=== PATIENT | male | born 1930 | race Caucasian/White ===

== ENCOUNTER 2020-07-11 08:24 | Observation (INO) ==
--- NOTE | 2020-07-11 09:21 | Emergency Department Note ---
Impression & Plan Lower gastrointestinal hemorrhage, Elevated troponin I level ED Provider Note NAME: BLAKE MIR AGE: 89 SEX: M : 1930 ARRIVES VIA: Walk-In INFORMANT: Patient, ED PROVIDER(S): Issa Shah DO CHIEF COMPLAINT: Rectal bleeding HPI: The patient is an 89-year-old male who presented to the emergency department for an evaluation of painless rectal bleeding. The patient states that he woke this morning with a large amount of rectal bleeding. This occurred without bowel movement. He notices no rectal pain or swelling. He does not have a history of lower GI bleeding or hemorrhoids. He does have a history of upper GI bleeding in the past requiring gastrectomy. He denies having any nausea or vomiting. He does complain of abdominal distention but no specific abdominal pain. The patient has not been seen by his primary care physician for these complaints. He notices no fevers. He has had a colonoscopy within the last 10 years but does not remember being told that he has a history of diverticular disease. The patient's symptoms are mildly improved at this time. ROS: See above HPI for pertinent positives & negatives. A total of 10 systems reviewed and were otherwise negative. PAST MEDICAL HISTORY: See Below PAST SURGICAL HISTORY: See Below FAMILY HISTORY: See Below SOCIAL HISTORY: See Below HOME MEDICATIONS: See Below ALLERGIES: See Below VITALS: See Below PHYSICAL EXAMINATION: GENERAL: Patient is awake alert in no acute distress patient is resting comfortably and showing no signs of anxiety EYES: The conjunctivae are clear. The pupils are round and reactive. EARS, NOSE, MOUTH AND THROAT: The nose is without any evidence of any deformity. NECK: The neck is nontender and supple. RESPIRATORY: Normal respiratory effort is noted there is no evidence of wheezing rhonchi or rales CARDIOVASCULAR: Regular rate and rhythm noted there no murmurs rubs or gallops normal S1 normal S2. GASTROINTESTINAL: The abdomen is moderately distended and diffusely tender. There is no specific guarding or rigidity. Rectal exam revealed gross blood per rectum. MUSCULOSKELETAL/EXTREMITIES: There is no evidence of gross deformity full range of motion is noted in the hips and shoulders. SKIN: Venous stasis changes were noted to both lower extremities. There is pedal edema bilaterally. NEUROLOGIC: Patient is awake alert and oriented x3. MEDICAL DECISION MAKING: The patient is an 89-year-old male who presented to the emergency department for an evaluation of lower GI bleeding. The patient was found to have signs of lower GI bleeding on physical exam. He was anemic however this appears baseline for him. He did have an elevated troponin which could be related to demand ischemia. The patient has no complaints at this time. His abdominal exam was not consistent with an acute surgical abdomen. We discussed patient's laborato ry and radiographic studies with him. We discussed his case with the on-call [facility] hospitalist. They will evaluate the patient in the emergency department for further management and disposition. Triage Nursing notes reviewed. Prior medical records reviewed Vital Signs: reviewed and remarkable for elevated blood pressure. Differential diagnosis: Diverticulosis, AVM, coagulopathy, colitis, inflammatory bowel disease, malignancy, Nichole-Lorenz tear, esophagitis, peptic ulcer disease, variceal blee d, gastritis, epistaxis, fissure, hemorrhoids, as well as other pathologies. ER treatment provided: See below Diagnostics interpreted by me: ECG: EKG was obtained in the emergency department. My interpretation is normal sinus rhythm at 68 bpm. There is no ectopy. There is no acute ST segment abnormalities. This was compared to a tracing from October 282015. No sp ecific changes were noted. Cardiac Monitoring: An order was placed for continuous cardiac monitoring. The monitor shows a rate of 75 bpm with sinus rhythm. Laboratory studies: As stated above and show below. Imaging studies: See below Consultation(s): I discussed this case with Mo[facility] will [facility] the patient in the emergency department for further management and disposition. Past Med/Surg History Medical History Abdominal aortic aneurysm CAD (coronary artery disease) CKD (chronic kidney disease), stage III Diabetes Hyperlipemia Hyperlipidemia Surgical History History of biopsy History of hernia repair History of partial gastrectomy Stented coronary artery Social History Smoking Status: Former smoker Feels Safe at Home: Yes Allergies Allergies Allergy/AdvReac Type Severity Reaction Status Date / Time No Known Allergies Allergy Unknown Unverified 07/11/20 09:15 Home Meds Home Medications Medication Instructions Recorded Confirmed amlodipine [Norvasc] 2.5 mg PO QAM 08/01/18 07/11/20 calcitriol [Rocaltrol] 0.25 mg PO MOWEFR@0800 08/01/18 07/11/20 fluoxetine [Prozac] 20 mg PO HS 08/01/18 07/11/20 furosemide [Lasix] 10 mg PO QAM 08/01/18 07/11/20 glimepiride [Amaryl] 2 mg PO QAM 08/01/18 07/11/20 lorazepam [Ativan] 0.5 mg PO TID PRN 08/01/18 07/11/20 metoprolol succinate [Toprol XL] 12.5 mg PO QAM 08/01/18 07/11/20 rosuvastatin [Crestor] 20 mg PO QAM 08/01/18 07/11/20 aspirin 81 mg PO 07/11/20 07/11/20 hydrochlorothiazide 12.5 mg PO QAM 07/11/20 07/11/20 Results & Data (ED) Vital Signs Vital Signs - 24 hr 07/11/20 08:26 07/11/20 08:40 07/11/20 08:59 Temperature 36.7 C Temperature Source Oral Pulse Rate 78 Pulse Rate from SpO2 Sensor Respiratory Rate 20 Respiratory Effort / Characteristics Non-Labored Respiratory Depth Normal Blood Pressure 168/81 H Blood Pressure Mean 110 Pulse Oximetry 93 95 95 Oxygen Delivery Method Room Air Room Air Room Air Sepsis Recent Fever Within 48 Hours No Sepsis New/Unexplained Change in Mental Status No Sepsis Action Taken by Nursing No Action Required 07/11/20 09:05 07/11/20 09:30 07/11/20 10:05 Temperature Temperature Source Pulse Rate 69 68 67 Pulse Rate from SpO2 Sensor 68 67 67 Respiratory Rate 21 22 20 Respiratory Effort / Characteristics Respiratory Depth Blood Pressure 154/76 H 139/78 142/74 H Blood Pressure Mean 98 101 112 Pulse Oximetry 94 94 95 Oxygen Delivery Method Room Air Room Air Room Air Sepsis Recent Fever Within 48 Hours Sepsis New/Unexplained Change in Mental Status Sepsis Action Taken by Snf Medications Current Medication List: was personally reviewed by me Laboratory Data Attestation: I reviewed the patient's lab results. Result diagrams: 07/11/20 08:41 07/11/20 08:41 Lab Results 07/11/20 07/11/20 07/11/20 Range/Units 08:41 08:41 08:41 WBC 12.49 H (4.8-10.8) K/uL RBC 3.84 L (4.7-6.1) M/uL Hgb 11.9 L (14.0-18.0) g/dL Hct 36.7 L (42-52) % MCV 95.6 (80-100) fL MCH 31.0 (25-34) pg MCHC 32.4 (32-36) g/dL RDW Std Deviation 49.9 H (36.4-46.3) fL RDW Coeff of Vikas 14.2 (11.5-14.5) % Plt Count 240 (130-400) K/uL MPV 10.0 (7.4-10.4) fL Immature Gran % (Auto) 0.3 % Neut % (Auto) 65.3 % Lymph % (Auto) 21.8 % Armstrong % (Auto) 7.0 % Eos % (Auto) 5.2 % Baso % (Auto) 0.4 % Neut # (Auto) 8.15 H (1.4-6.5) K/uL Lymph # (Auto) 2.72 (1.2-3.4) K/uL Armstrong # (Auto) 0.88 H (0.11-0.59) K/uL Eos # (Auto) 0.65 H (0-0.5) K/uL Baso # (Auto) 0.05 (0-0.2) K/uL Immature Gran # (Auto) 0.04 H (0.00-0.02) K/uL PT 10.9 (9.0-12.0) Seconds INR 1.0 (0.9-1.1) APTT 25.1 (21.0-31.0) Seconds PTT Ratio 0.9 Sodium 140 (136-145) mmol/L Potassium 4.4 (3.5-5.1) mmol/L Chloride 108 H (98-107) mmol/L Carbon Dioxide 25 (21-32) mmol/L Anion Gap 7.0 (3-11) BUN 37 H (7-18) mg/dl Creatinine 2.14 H (0.6-1.4) mg/dl Est Cr Clr Drug Dosing 20.4 ml/min Est GFR ( Amer) 30.7 Est GFR (Non-Af Amer) 26.5 BUN/Creatinine Ratio 17.1 (10-20) Glucose 152 H (70-99) mg/dl Calcium 8.9 (8.5-10.1) mg/dl Magnesium 2.0 (1.8-2.4) mg/dl Total Bilirubin 0.2 (0.2-1) mg/dl AST 16 (15-37) U/L ALT 19 (12-78) U/L Alkaline Phosphatase 58 (45-117) U/L Troponin I 0.099 H* (0-0.045) ng/ml Total Protein 8.5 H (6.4-8.2) gm/dl Albumin 3.4 (3.4-5.0) gm/dl Globulin 5.1 H (2.5-4.0) gm/dl Albumin/Globulin Ratio 0.7 L (0.9-2) TSH 2.440 (0.300-4.500) uIu/ml Imaging Data Radiologist's Impression: KUB HISTORY: GI bleed. COMPARISON: None. FINDINGS: The bowel gas pattern is unremarkable. There are no dilated loops of small bowel to suggest an obstruction. No renal calculi. No ureteral calculi. Calcifications in the deep pelvis likely represent phleboliths. Vascular calcifications are noted. No pneumoperitoneum or pneumatosis. IMPRESSION: No evidence for bowel obstruction. ACT 112: Negative or not required by law. Electronically signed by: Brian Shipley M.D. 07/11/2020 10:13 AM Dictated: 07/11/20 1012 Transcribed: 07/11/20 1012 SINGLE VIEW CHEST CLINICAL HISTORY: Generalized weakness. FINDINGS: An AP, portable, upright chest radiograph is compared to study dated 08/01/2018. The examination is degraded by portable technique and patient rotation. The heart is enlarged noting atherosclerotic calcification of the thoracic aorta. The pulmonary vasculature is noncongested. Chronic interstitial thickening and apical scarring is similar to previous. There is bibasilar scarring/atelectasis. No airspace consolidation or large pleural effusion is identified. No pneumothorax is seen. The skeletal structures are osteopenic. The bony thorax is grossly intact. Calcific tendinopathy is noted in the left shoulder. IMPRESSION: Cardiomegaly with no acute cardiopulmonary abnormality. ACT 112: Negative or not required by law. Electronically signed by: Gopal Adam M.D. 07/11/2020 10:09 AM Dictated: 07/11/20 1008 Transcribed: 07/11/20 1008 Blood Pressure Blood Pressure Findings: Elevated blood pressure Blood Pressure Disposition: further management by hospitalist Discharge Plan Visit Data Chief Complaint: Rectal Bleed Stated Complaint: RECTAL BLEEDING ED Provider: Issa Shah ED Midlevel Provider: Edmund Henderson Discharge Problem: Lower gastrointestinal hemorrhage, Elevated troponin I level Patient Disposition: Being Evaluated by Hospitalist Condition: Good Forms Stand Alone [facility] [employer] Prescriptions Prescriptions: No Action hydrochlorothiazide 12.5 mg capsule 12.5 mg PO QAM RF: 0 aspirin 81 mg Tablet,Delayed Release (Dr/Ec) 81 mg PO HS RF: 0 amlodipine [Norvasc] 2.5 mg tablet 2.5 mg PO QAM RF: 0 glimepiride [Amaryl] 2 mg tablet 2 mg PO QAM RF: 0 lorazepam [Ativan] 0.5 mg tablet 0.5 mg PO TID PRN (Reason: Anxiety) RF: 0 furosemide [Lasix] 20 mg tablet 10 mg PO QAM RF: 0 metoprolol succinate [Toprol XL] 25 mg tablet extended release 24 hr 12.5 mg PO QAM RF: 0 fluoxetine [Prozac] 20 mg capsule 20 mg PO HS RF: 0 calcitriol [Rocaltrol] 0.25 mcg capsule 0.25 mg PO MOWEFR@0800 RF: 0 rosuvastatin [Crestor] 20 mg tablet 20 mg PO QAM RF: 0 Referrals Referrals: Ganesh Livingston DO [Primary Care Provider] -
--- NOTE | 2020-07-11 09:34 | Emergency Department Note ---
ED Visit Note I saw this patient today and discussed my findings w/ Dr. Shah who has examined the patient independently. Please see his documentation for assessment and plan. . Resident Activity Tracking Resident Involvement: Resident Care Provided Care Provided: Adult ED
[2020-07-11 09:41] LABS: Basophils # (auto) 0.05 K/uL (0-0.2); Basophils % (auto) 0.4 %; Eosinophils # (auto) 0.65 K/uL (0-0.5); Eosinophils % (auto) 5.2 %; Hematocrit (blood only) 36.7 % (42-52); Hemoglobin 11.9 g/dL (14.0-18.0); Immature Granulocytes # (auto) 0.04 K/uL (0.00-0.02); Immature Granulocytes % (auto) 0.3 %; Lymphocytes # (auto) 2.72 K/uL (1.2-3.4); Lymphocytes % (auto) 21.8 %; Mean Corpuscular Hgb Conc 32.4 g/dL (32-36); Mean Corpuscular Volume 95.6 fL (80-100); Monocytes # (auto) 0.88 K/uL (0.11-0.59); Neutrophils # (auto) 8.15 K/uL (1.4-6.5); Neutrophils % (auto) 65.3 %; Platelet Count 240 K/uL (130-400); RDW Coefficient of Variation 14.2 % (11.5-14.5); RDW Standard Deviation 49.9 fL (36.4-46.3); Red Blood Count 3.84 M/uL (4.7-6.1); White Blood Count 12.49 K/uL (4.8-10.8)
[2020-07-11 09:52] LABS: Partial Thromboplastin Ratio 0.9; Partial Thromboplastin Time 25.1 Seconds (21.0-31.0); Prothrombin Time 10.9 Seconds (9.0-12.0)
[2020-07-11 09:54] LABS: Potassium 4.4 mmol/L (3.5-5.1)
[2020-07-11 09:55] LABS: Albumin Level 3.4 gm/dl (3.4-5.0); BUN Creatinine Ratio 17.1 (10-20); Calcium 8.9 mg/dl (8.5-10.1); Creatinine Clr Calc Pharmacy 20.4 ml/min; Est GFR (African American) 30.7; Est GFR (Non-African American) 26.5
--- NOTE | 2020-07-11 10:10 | XRay Report ---
SINGLE VIEW CHEST CLINICAL HISTORY: Generalized weakness. FINDINGS: An AP, portable, upright chest radiograph is compared to study dated 08/01/2018. The examina tion is degraded by portable technique and patient rotation. The heart is enlarged noting atheroscl erotic calcification of the thoracic aorta. The pulmonary vasculature is noncongested. Chronic inters titial thickening and apical scarring is similar to previous. There is bibasilar scarring/atelectasis . No airspace consolidation or large pleural effusion is identified. No pneumothorax is seen. The ske letal structures are osteopenic. The bony thorax is grossly intact. Calcific tendinopathy is noted in the left shoulder. IMPRESSION: Cardiomegaly with no acute cardiopulmonary abnormality. ACT 112: Negative or not required by law. Electronically signed by: Gopal Adam M.D. 07/11/2020 10:09 AM
--- NOTE | 2020-07-11 10:15 | XRay Report ---
KUB HISTORY: GI bleed. COMPARISON: None. FINDINGS: The bowel gas pattern is unremarkable. There are no dilated loops of small bowel to suggest an obstruction. No renal calculi. No ureteral calculi. Calcifications in the deep pelvis likely rep resent phleboliths. Vascular calcifications are noted. No pneumoperitoneum or pneumatosis. IMPRESSION: No evidence for bowel obstruction. ACT 112: Negative or not required by law. Electronically signed by: Brian Shipley M.D. 07/11/2020 10:13 AM
[2020-07-11 10:24] LABS: Albumin Globulin Ratio 0.7 (0.9-2); Bilirubin,Total 0.2 mg/dl (0.2-1); Globulin 5.1 gm/dl (2.5-4.0); Thyroid Stimulating Hormone 2.44 uIu/ml (0.300-4.500); Total Protein 8.5 gm/dl (6.4-8.2); Troponin I 0.099 ng/ml (0-0.045)
--- NOTE | 2020-07-11 11:57 | History & Physical Report ---
Date of Service July 11, 2020 Assessment & Plan (1) Rectal bleeding: Pt is 89 y/o M with PMH DM II, HTN, dyslipidemia, CAD s/p PTCA in 1996, CKD III, gastric ulcer s/p partial gastrectomy, AAA, anxiety, depression, PAD, GERD presented to ER with complaint of rectal bleeding started this morning. Denies fever/chills, N/V/D/C, abdominal pain, CP, SOB, dizziness, syncope History colonoscopy in 2006: Polyps, diverticulosis In ER patient afebrile, vitals stable with pulse 78, BP: 168/81 H/H: 11.9/36. (Baseline Hgb: 11.6 on 05/02/2020), PLT:240, normal coags KUB:No evidence for bowel obstruction. DDX: diverticular bleed, hemorrhoid bleed, mass CT ABD/Pelvis pending Type and cross PRBC and hold NPO for now Gentle IVF Stool cultures, C-diff Monitor H&H Q6H GI consult CBC, BMP in am (2) Elevated troponin: Troponin: 0.09. EKG sinus rhythm without acute ST changes. No CP, SOB -Monitor Vitals -Repeat EKG in am -Will trend troponin -Echo -Hold aspirin currently with rectal bleeding -Hold statin for now while npo -Continue metoprolol succinate -If increasing troponin, consider cardiology consult (3) Diabetes mellitus, type II: A1c: 7.4 on 05/18/2020 -Hold oral home meds -Monitor BSG -NovoLog sliding scale per protocol (4) CAD (coronary artery disease): S/P stent in 1996 History echo 2017: EF: 55-59%, grade 1 diastolic dysfunction, mild aortic valve sclerosis -Holding aspirin, statin for now as above -Continue metoprolol (5) HTN (hypertension): BP's stable. Most recent BP 152/99 -Continue metoprolol succinate -Hold amlodipine for now and monitor BP (6) CKD (chronic kidney disease), stage III: Cr: 2.14. Baseline Cr: 1.9-2.0. -Monitor renal functions, avoid nephrotoxic agents when possible (7) GERD (gastroesophageal reflux disease): (8) History of partial gastrectomy: H/O gastric ulcer s/p partial gastrectomy in s -Hold oral PPI, H2 savanna for now and will convert PPI to IV while npo (9) Anxiety: -Hold home meds at this time while npo DVT Prophylaxis -SCDs secondary to rectal bleeding DNR/DNI as per discussion with pt Follows with Dr Ganesh Livingston for routine care Pt was seen and care coordinated with Dr Scott. See addendum History of Present Illness Chief Complaint: Rectal bleeding Primary Care Provider: Ganesh Livingston, Pt is 89 y/o M with PMH DM II, HTN, dyslipidemia, CAD s/p PTCA in 1996, CKD III, gastric ulcer s/p partial gastrectomy, AAA, anxiety, depression, PAD, GERD presented to ER with complaint of rectal bleeding today. Patient states woke up this morning and noted red blood in his underwear and on his bedsheet. Patient states this morning had 2 episodes of sensation that he had to have a BM however when went to bathroom past red blood. He is unsure if he had any stool mixed in with the blood. Denies any abdominal pain, nausea, vomiting. Patient denies any lightheadedness, syncope, chest pain, shortness of breath. Denies h/o rectal bleeding or hemorrhoids in past. Denies recent diarrhea or constipation. Denies fever/chills, diaphoresis, OLSEN, dizziness, syncope, vision changes, neck pain, orthopnea, palpitations, cough, sore throat, rhinorrhea, abdominal pain, paresthesias, weakness, extremity weakness, extremity edema, rashes, urinary symptoms. History colonoscopy in 2006: Polyps, diverticulosis Allergies Allergy/AdvReac Type Severity Reaction Status Date / Time No Known Allergies Allergy Unknown Unverified 07/11/20 09:15 Home Medications Home Medications Medication Instructions Recorded Confirmed Type calcitriol [Rocaltrol] 0.25 mg PO MOWEFR@0800 08/01/18 07/11/20 History metoprolol succinate [Toprol XL] 12.5 mg PO QAM 08/01/18 07/11/20 History amlodipine 5 mg PO DAILY 07/11/20 07/11/20 History aspirin 81 mg PO HS 07/11/20 07/11/20 History buspirone 10 mg PO BID 07/11/20 07/11/20 History escitalopram oxalate 10 mg PO DAILY 07/11/20 07/11/20 History furosemide 40 mg PO DAILY 07/11/20 07/11/20 History glipizide 10 mg PO BID 07/11/20 07/11/20 History hydrochlorothiazide 12.5 mg PO QAM 07/11/20 07/11/20 History linagliptin [Tradjenta] 5 mg PO DAILY 07/11/20 07/11/20 History omeprazole 40 mg PO DAILY 07/11/20 07/11/20 History rosuvastatin 10 mg PO DAILY 07/11/20 07/11/20 History tamsulosin 0.4 mg PO DAILY 07/11/20 07/11/20 History Past Med/Surg History Medical History (Updated 07/11/20 @ 12:04 by Marsha Jason PA-C) Abdominal aortic aneurysm Anxiety CAD (coronary artery disease) CKD (chronic kidney disease), stage III Diabetes Diabetes mellitus, type II Gastric ulcer GERD (gastroesophageal reflux disease) HTN (hypertension) Hyperlipidemia PAD (peripheral artery disease) Surgical History History of biopsy History of hernia repair History of partial gastrectomy Stented coronary artery Family History Other Diabetes Social History Smoking Status: Former smoker Smoking End Date: 1970; Second Hand Exposure: No; Do You Dip or Chew Tobacco: No; Tobacco Cessation Education Requested by Patient: No Hx Alcohol Use: Yes Hx Substance Use: No Preferred Language: Polish Communication Ability: Effective Seo Intern Required: No Beliefs That Will Affect Care: None Current Living Situation: Alone Other Information That Helps Us Care for You: No Feels Safe at Home: Yes Safety Concerns: Feels Safe At This Time Review of Systems Review of Systems: All systems reviewed & are unremarkable except as noted in HPI & below Physical Exam Physical Exam: General: no distress, WDWN Head: normocephalic, atraumatic Eyes: conjunctiva non-injected, anicteric ENT: hard of hearing, normal inspection external ears, nose, mucous membranes moist Neck: supple, trachea midline Lungs: clear, no respiratory distress, no wheezing/rhonchi/rales CV: RRR, no murmur, no pretibial edema Abd: normal BS, soft, non-tender Ext: no cyanosis, no calf tenderness Neuro: A&O x 3, no focal deficits noted, normal affect Skin: warm, dry Results & Data Results & Data ([facility]) Vital Signs (Past 12 Hours) Vital Signs Temp Pulse Resp BP Pulse Ox 07/11/20 11:00 75 15 145/82 H 95 07/11/20 10:30 73 22 141/78 H 93 07/11/20 10:05 67 20 142/74 H 95 07/11/20 09:30 68 22 139/78 94 07/11/20 09:05 69 21 154/76 H 94 07/11/20 08:59 95 07/11/20 08:40 95 07/11/20 08:26 36.7 C 78 20 168/81 H 93 Laboratory Results Short CBC 07/11/20 Range/Units 08:41 WBC 12.49 H (4.8-10.8) K/uL Hgb 11.9 L (14.0-18.0) g/dL Hct 36.7 L (42-52) % Plt Count 240 (130-400) K/uL BMP 07/11/20 08:41 Sodium 140 Potassium 4.4 Chloride 108 H Carbon Dioxide 25 BUN 37 H Creatinine 2.14 H Glucose 152 H Calcium 8.9 Cardiac Enzymes 07/11/20 Range/Units 08:41 Troponin I 0.099 H* (0-0.045) ng/ml Liver Function 07/11/20 Range/Units 08:41 Total Bilirubin 0.2 (0.2-1) mg/dl AST 16 (15-37) U/L ALT 19 (12-78) U/L Alkaline Phosphatase 58 (45-117) U/L Albumin 3.4 (3.4-5.0) gm/dl Diagnostic Findings KUB XRAY: IMPRESSION: No evidence for bowel obstruction. CXR: IMPRESSION: Cardiomegaly with no acute cardiopulmonary abnormality. ECG Additional Comments: poor tracing. Rate 68, sinus rhythm, no acute ST changes noted Code Status & VTE Plan VTE Prophylaxis Plan VTE Prophylaxis will be ordered: Yes Supervising Physician Co-Signing Physician Notes I, Dr. Cedric Scott, have seen and examined the patient Luigi Ireland with physician administrative support assistant And on physical exam that General: no acute distress, patient is somewhat hard of hearing but can answer questions Lungs: normal respiratory effort, no wheezing, on room air Heart: regular rate: Abdomen: soft, nontender, positive bowel sounds Extremities: some redness and yellow discoloration of the shins for which patient reports has been chronic and been there for years from history of old injury Assessment and Plan -This is 89 year old male who has rectal bleeding. His girlfriend at the bedside reported that she noted this when he woke up from bed to go to bathroom to urinate and saw the bedsheet and underwear with blood. Patient reports bright red blood when he defecated. He denies blood in urination. -hemoglobin on ED presentation is comparable to outpatient labs, trend the CBC, give IV protonics -patient has elevated white blood cell count of 12,000 on presentation but denies abdominal pain or vomiting or fevers at home. will send stool culture. Patient also given oral contrast for CT abdomen/Pelvis to rule out diverticular bleed. -His renal function does not really permit for IV contrast studies given the chronic kidney disease -once CT scan is done, consider clear liquid diet for now, and consider to give bowel prep later in evening in case gastroenterology consult can perform colonoscopy on 07/12/2020 or upper endoscopy -patient has mildly elevated initial troponin of 0.099 but he denies any chest pain. Will trend the troponins and obtain echocardiogram -holding aspirin for now because of rectal bleed at home -management of diabetes mellitus type II , hypertension, coronary artery disease as documented by physician administrative support assistant
[2020-07-11] MEDS ORDERED: GLUCOSE 40% GEL 15 GM TUBE PO PRN (12:32)
[2020-07-11] MEDS ORDERED: SODIUM CHLORIDE 0.9% 250 ML IV PRN (12:32)
[2020-07-11] MEDS ORDERED: GLUCOSE 10 TABS/TUBE PO PRN (12:32)
[2020-07-11] MEDS ORDERED: ACETAMINOPHEN 325 MG TAB PO PRN ×2 (12:32→15:59)
[2020-07-11] MEDS ORDERED: CARBOHYDRATES FOR HYPOGLYCEMIA PO PRN (12:32)
[2020-07-11] MEDS ORDERED: DEXTROSE 50% 50 ML SYRINGE IV PRN (12:32)
[2020-07-11] MEDS ORDERED: GLUCAGON FOR INJ 1 MG VIAL SQ PRN (12:32)
[2020-07-11] MEDS ORDERED: D5W AND NSS 1,000 ML IV SCH (13:00)
--- NOTE | 2020-07-11 13:01 | Gastrointestinal Consultation ---
Date of Consultation July 11, 2020 Assessment & Plan (1) Rectal bleedin89 y/o male with PMhx CAD, HTN, CKD, s/p Billroth II 1958 for PUD, who was admitted today with hematochezia, with HGB, BUN/cr near baseline and coags WNL, elevated troponin noted. CTAP with mild nonspecific left-sided colitis. Diff dx = diverticular vs hemorrhoidal bleed, ischemic colitis, infectious colitis, vs underlying polyps/malignancy, vs brisk UGIB. Abd is soft, rectal exam without active bleeding; he's HD stable. - Await c. diff and stool cx - Clear liquids today, then NPO after midnight - Trend H&H, transfuse PRN - Would continue PPI - IVF - Start colonoscopy prep with GOLytely at 1700 today - Plan for EGD/colonoscopy tomorrow 07/12/20 - Further rec's to follow procedure Thank you for allowing us to participate in the care of this patient. Please call with any acute changes, questions or concerns. Please see addendum below with additional recommendation from my supervising physician. Supervising Physician Co-Signing Physician Notes I performed a history and physical examination of the patient today, including specifically on physical exam - soft abdomen. I have discussed the patient's management with the advanced practitioner. Please refer to the nurse practitioner's note for the documented findings and plan of care. Rectal bleeding, ? Ischemic Vs Diverticular. EGD/colonoscopy tomorrow. Meanwhile, continue on ABx. History of Present Illness Reason for Consultation: rectal bleeding Attending Physician: Cedric Scott MD History of Present Illness 89 y/o male with PMhx CAD s/p PTCA 1996, AAA, HTN, T2DM, CKD, s/p Billroth II 1959 for PUD, and others who presented to the ER today for painless hematochezia that occurred in the absence of a BM. He estimates it was "about a pint." In the ER, gross blood noted on rectal exam. H/H at baseline (11.9/36.7), plt 240, WBC 12, BUN 37, cr 2.14 (baseline), INR WNL, elevated troponin. C. diff, stool cx pending. KUB with no obstruction. CTAP with mild nonspecific left-sided colitis. Pt notes he has regular brown BMs; not usually having BRBPR; no melena, abd pain, n/v, hematemesis, CP, SOB, weight loss, dysuria, hematuria, syncope, dizziness, fever, chills. colonoscopy 2007: 3 hyperplastic polyps, diverticulosis. Allergies Allergy/AdvReac Type Severity Reaction Status Date / Time No Known Allergies Allergy Unknown Unverified 07/11/20 09:15 Home Medications Home Medications Medication Instructions Recorded Confirmed Type calcitriol [Rocaltrol] 0.25 mg PO MOWEFR@0800 08/01/18 07/11/20 History metoprolol succinate [Toprol XL] 12.5 mg PO QAM 08/01/18 07/11/20 History amlodipine 5 mg PO DAILY 07/11/20 07/11/20 History aspirin 81 mg PO HS 07/11/20 07/11/20 History buspirone 10 mg PO BID 07/11/20 07/11/20 History escitalopram oxalate 10 mg PO DAILY 07/11/20 07/11/20 History furosemide 40 mg PO DAILY 07/11/20 07/11/20 History glipizide 10 mg PO BID 07/11/20 07/11/20 History hydrochlorothiazide 12.5 mg PO QAM 07/11/20 07/11/20 History linagliptin [Tradjenta] 5 mg PO DAILY 07/11/20 07/11/20 History omeprazole 40 mg PO DAILY 07/11/20 07/11/20 History rosuvastatin 10 mg PO DAILY 07/11/20 07/11/20 History tamsulosin 0.4 mg PO DAILY 07/11/20 07/11/20 History Patient History Medical History (Updated 07/11/20 @ 12:04 by Marsha Jason PA-C) Abdominal aortic aneurysm Anxiety CAD (coronary artery disease) CKD (chronic kidney disease), stage III Diabetes Diabetes mellitus, type II Gastric ulcer GERD (gastroesophageal reflux disease) HTN (hypertension) Hyperlipidemia PAD (peripheral artery disease) Surgical History History of biopsy History of hernia repair History of partial gastrectomy Stented coronary artery Family History Other Diabetes Social History Smoking Status: Former smoker Smoking End Date: 1970; Second Hand Exposure: No; Do You Dip or Chew Tobacco: No; Tobacco Cessation Education Requested by Patient: No Hx Alcohol Use: Yes Hx Substance Use: No Preferred Language: [place] Citizen Communication Ability: Effective Student Union Consultant Required: No Beliefs That Will Affect Care: None Current Living Situation: Alone Other Information That Helps Us Care for You: No Feels Safe at Home: Yes Safety Concerns: Feels Safe At This Time Review of Systems Review of Systems: All systems reviewed & are unremarkable except as noted in HPI & below Constitutional: no fever, no chills, no fatigue and no weight loss Eyes: no eye pain and no worsening vision Ear, Nose, Mouth, Throat: no tinnitus, no dizziness, no nasal discharge and no epistaxis Respiratory: no cough, no dyspnea, no dyspnea on exertion and no wheezing Cardiovascular: no chest pain, no orthopnea, no palpitations and no edema Gastrointestinal: as per Subjective / HPI Musculoskeletal: no stiffness and no myalgia Neurologic: no localized weakness, no paralysis, no tremor(s) and no headache(s) Endocrine: no polydipsia and no polyuria Hematologic / Lymphatic: no easy bleeding and no night sweats Physical Exam Constitutional: WD/WN, vitals as above Eyes: + anicteric sclerae Respiratory: normal respiratory effort, lungs clear to auscultation Cardiovascular: Rate/Rhythm: regular rate and regular rhythm Gastrointestinal (Abdomen): Inspection/Auscultation: abdomen normal to inspection; abdomen not distended Percussion/Palpation: abdomen soft; abdomen nontender Rectal Exam: normal visual inspection of rectum no active rectal bleeding Skin: no rashes, warm and dry Psychiatric: A+Ox3, euthymic affect Results & Data ([facility]) Vital Signs (Past 12 Hours) Vital Signs Temp Pulse Resp BP Pulse Ox 07/11/20 12:00 74 20 160/83 H 95 07/11/20 11:30 71 24 152/99 H 07/11/20 11:00 75 15 145/82 H 95 07/11/20 10:30 73 22 141/78 H 93 07/11/20 10:05 67 20 142/74 H 95 07/11/20 09:30 68 22 139/78 94 07/11/20 09:05 69 21 154/76 H 94 07/11/20 08:59 95 07/11/20 08:40 95 07/11/20 08:26 36.7 C 78 20 168/81 H 93 Laboratory Results 07/11/20 07/11/20 07/11/20 Range/Units 14:25 14:25 12:42 WBC (4.8-10.8) K/uL RBC (4.7-6.1) M/uL Hgb 10.3 L (14.0-18.0) g/dL Hct 31.0 L (42-52) % MCV (80-100) fL MCH (25-34) pg MCHC (32-36) g/dL RDW Std Deviation (36.4-46.3) fL RDW Coeff of Vikas (11.5-14.5) % Plt Count (130-400) K/uL MPV (7.4-10.4) fL Immature Gran % (Auto) % Neut % (Auto) % Lymph % (Auto) % [place] % (Auto) % Eos % (Auto) % Baso % (Auto) % Neut # (Auto) (1.4-6.5) K/uL Lymph # (Auto) (1.2-3.4) K/uL [place] # (Auto) (0.11-0.59) K/uL Eos # (Auto) (0-0.5) K/uL Baso # (Auto) (0-0.2) K/uL Immature Gran # (Auto) (0.00-0.02) K/uL PT (9.0-12.0) Seconds INR (0.9-1.1) APTT (21.0-31.0) Seconds PTT Ratio Sodium (136-145) mmol/L Potassium (3.5-5.1) mmol/L Chloride (98-107) mmol/L Carbon Dioxide (21-32) mmol/L Anion Gap (3-11) BUN (7-18) mg/dl Creatinine (0.6-1.4) mg/dl Est Cr Clr Drug Dosing ml/min Est GFR ( Amer) Est GFR (Non-Af Amer) BUN/Creatinine Ratio (10-20) Glucose (70-99) mg/dl POC Glucose 322 H* (70-99) mg/dl Calcium (8.5-10.1) mg/dl Magnesium (1.8-2.4) mg/dl Total Bilirubin (0.2-1) mg/dl AST (15-37) U/L ALT (12-78) U/L Alkaline Phosphatase (45-117) U/L Troponin I 0.193 H* (0-0.045) ng/ml Total Protein (6.4-8.2) gm/dl Albumin (3.4-5.0) gm/dl Globulin (2.5-4.0) gm/dl Albumin/Globulin Ratio (0.9-2) TSH (0.300-4.500) uIu/ml Blood Type Antibody Screen Crossmatch 07/11/20 07/11/20 07/11/20 Range/Units 12:40 08:41 08:41 WBC (4.8-10.8) K/uL RBC (4.7-6.1) M/uL Hgb (14.0-18.0) g/dL Hct (42-52) % MCV (80-100) fL MCH (25-34) pg MCHC (32-36) g/dL RDW Std Deviation (36.4-46.3) fL RDW Coeff of Vikas (11.5-14.5) % Plt Count (130-400) K/uL MPV (7.4-10.4) fL Immature Gran % (Auto) % Neut % (Auto) % Lymph % (Auto) % [place] % (Auto) % Eos % (Auto) % Baso % (Auto) % Neut # (Auto) (1.4-6.5) K/uL Lymph # (Auto) (1.2-3.4) K/uL [place] # (Auto) (0.11-0.59) K/uL Eos # (Auto) (0-0.5) K/uL Baso # (Auto) (0-0.2) K/uL Immature Gran # (Auto) (0.00-0.02) K/uL PT 10.9 (9.0-12.0) Seconds INR 1.0 (0.9-1.1) APTT 25.1 (21.0-31.0) Seconds PTT Ratio 0.9 Sodium 140 (136-145) mmol/L Potassium 4.4 (3.5-5.1) mmol/L Chloride 108 H (98-107) mmol/L Carbon Dioxide 25 (21-32) mmol/L Anion Gap 7.0 (3-11) BUN 37 H (7-18) mg/dl Creatinine 2.14 H (0.6-1.4) mg/dl Est Cr Clr Drug Dosing 20.4 ml/min Est GFR ( Amer) 30.7 Est GFR (Non-Af Amer) 26.5 BUN/Creatinine Ratio 17.1 (10-20) Glucose 152 H (70-99) mg/dl POC Glucose 330 H* (70-99) mg/dl Calcium 8.9 (8.5-10.1) mg/dl Magnesium 2.0 (1.8-2.4) mg/dl Total Bilirubin 0.2 (0.2-1) mg/dl AST 16 (15-37) U/L ALT 19 (12-78) U/L Alkaline Phosphatase 58 (45-117) U/L Troponin I 0.099 H* (0-0.045) ng/ml Total Protein 8.5 H (6.4-8.2) gm/dl Albumin 3.4 (3.4-5.0) gm/dl Globulin 5.1 H (2.5-4.0) gm/dl Albumin/Globulin Ratio 0.7 L (0.9-2) TSH 2.440 (0.300-4.500) uIu/ml Blood Type Antibody Screen Crossmatch 07/11/20 07/11/20 Range/Units 08:41 08:41 WBC 12.49 H (4.8-10.8) K/uL RBC 3.84 L (4.7-6.1) M/uL Hgb 11.9 L (14.0-18.0) g/dL Hct 36.7 L (42-52) % MCV 95.6 (80-100) fL MCH 31.0 (25-34) pg MCHC 32.4 (32-36) g/dL RDW Std Deviation 49.9 H (36.4-46.3) fL RDW Coeff of Vikas 14.2 (11.5-14.5) % Plt Count 240 (130-400) K/uL MPV 10.0 (7.4-10.4) fL Immature Gran % (Auto) 0.3 % Neut % (Auto) 65.3 % Lymph % (Auto) 21.8 % [place] % (Auto) 7.0 % Eos % (Auto) 5.2 % Baso % (Auto) 0.4 % Neut # (Auto) 8.15 H (1.4-6.5) K/uL Lymph # (Auto) 2.72 (1.2-3.4) K/uL [place] # (Auto) 0.88 H (0.11-0.59) K/uL Eos # (Auto) 0.65 H (0-0.5) K/uL Baso # (Auto) 0.05 (0-0.2) K/uL Immature Gran # (Auto) 0.04 H (0.00-0.02) K/uL PT (9.0-12.0) Seconds INR (0.9-1.1) APTT (21.0-31.0) Seconds PTT Ratio Sodium (136-145) mmol/L Potassium (3.5-5.1) mmol/L Chloride (98-107) mmol/L Carbon Dioxide (21-32) mmol/L Anion Gap (3-11) BUN (7-18) mg/dl Creatinine (0.6-1.4) mg/dl Est Cr Clr Drug Dosing ml/min Est GFR ( Amer) Est GFR (Non-Af Amer) BUN/Creatinine Ratio (10-20) Glucose (70-99) mg/dl POC Glucose (70-99) mg/dl Calcium (8.5-10.1) mg/dl Magnesium (1.8-2.4) mg/dl Total Bilirubin (0.2-1) mg/dl AST (15-37) U/L ALT (12-78) U/L Alkaline Phosphatase (45-117) U/L Troponin I (0-0.045) ng/ml Total Protein (6.4-8.2) gm/dl Albumin (3.4-5.0) gm/dl Globulin (2.5-4.0) gm/dl Albumin/Globulin Ratio (0.9-2) TSH (0.300-4.500) uIu/ml Blood Type A Positive Antibody Screen NEGATIVE Crossmatch See Detail Diagnostic Findings CTAP Lung bases: The heart is normal in size and without pericardial effusion. The coronary arteries are densely calcified. Fibrotic change is noted at the lung bases. There is no airspace consolidation or pleural effusion. A small hiatal hernia is noted. Liver: The unenhanced liver is normal in size, contour, and attenuation. There is no intrahepatic biliary ductal dilatation. Gallbladder: Unremarkable. Spleen: Normal in size and attenuation. Pancreas: The unenhanced pancreas is atrophic and grossly unremarkable. Adrenal glands: Unremarkable. Kidneys: The unenhanced kidneys are atrophic and without hydronephrosis. No renal calculi are clearly identified. There are numerous renovascular calcifications. There is no evidence of contour deforming renal mass lesion. Abdominal vasculature: There is advanced atherosclerotic calcification of the abdominal aorta. An infrarenal abdominal aortic aneurysm measures 5.6 x 5.6 cm (AP x transverse). The aneurysm sac extends 7.5 cm in craniocaudal length. Bowel: There is evidence of previous gastric surgery. No bowel obstruction is seen. Enteric contrast reaches the rectum. There is moderate colonic diverticulosis without CT evidence of acute diverticulitis. Mild wall thickening is suggested in the left colon involving the mid to distal descending and proximal sigmoid. There is only minimal pericolonic inflammation. The appendix is well-visualized and normal. Peritoneum: There is no intraperitoneal free air or abdominal ascites. Lymphadenopathy: None. Pelvic viscera: The prostate gland is heterogeneous. The bladder and seminal vesicles are normal as imaged. There are bilateral fat-containing inguinal hernias. Skeletal structures: The skeletal structures are osteopenic. Moderate lumbosacral spondylosis is observed. No lytic or blastic lesions are seen. IMPRESSION: 1. Findings suggest a mild nonspecific colitis of the left colon. This could be on an infectious, inflammatory, or ischemic basis and clinical correlation will be required. 2. There is a 5.6 x 5.6 cm infrarenal abdominal aortic aneurysm as detailed above. 3. Moderate colonic diverticulosis without CT evidence of acute diverticulitis. 4. Additional findings as above.
[2020-07-11] MEDS: METOPROLOL SUCC 25MG EXT REL TAB PO SCH (13:37)
[2020-07-11] MEDS: PANTOprazole 40 MG in SYRINGE 0 ML IV SCH (13:37)
[2020-07-11] MEDS: INSULIN ASPART 100 UNITS/ML 3 ML PEN SC SCH ×3 (13:40→21:00)
[2020-07-11 14:43] LABS: Hemoglobin 10.3 g/dL (14.0-18.0)
--- NOTE | 2020-07-11 16:01 | CT Scan Report ---
CT SCAN OF THE ABDOMEN AND PELVIS WITHOUT IV CONTRAST CLINICAL HISTORY: GI bleeding. COMPARISON STUDY: Abdominal radiograph dated 07/11/2020. TECHNIQUE: CT scan of the abdomen and pelvis is performed from the lung bases to the proximal femora. Images are reviewed in the axial, sagittal, and coronal planes. IV contrast was not administered for this examination. Oral contrast was utilized. A dose lowering technique was utilized adhering to the principles of ALARA. CT DOSE: 304.57 mGy.cm FINDINGS: Lung bases: The heart is normal in size and without pericardial effusion. The coronary arteries are d ensely calcified. Fibrotic change is noted at the lung bases. There is no airspace consolidation or p leural effusion. A small hiatal hernia is noted. Liver: The unenhanced liver is normal in size, contour, and attenuation. There is no intrahepatic payam iary ductal dilatation. Gallbladder: Unremarkable. Spleen: Normal in size and attenuation. Pancreas: The unenhanced pancreas is atrophic and grossly unremarkable. Adrenal glands: Unremarkable. Kidneys: The unenhanced kidneys are atrophic and without hydronephrosis. No renal calculi are clearly identified. There are numerous renovascular calcifications. There is no evidence of contour deformin g renal mass lesion. Abdominal vasculature: There is advanced atherosclerotic calcification of the abdominal aorta. An inf rarenal abdominal aortic aneurysm measures 5.6 x 5.6 cm (AP x transverse). The aneurysm sac extends 7 .5 cm in craniocaudal length. Bowel: There is evidence of previous gastric surgery. No bowel obstruction is seen. Enteric contrast reaches the rectum. There is moderate colonic diverticulosis without CT evidence of acute diverticuli tis. Mild wall thickening is suggested in the left colon involving the mid to distal descending and p roximal sigmoid. There is only minimal pericolonic inflammation. The appendix is well-visualized and normal. Peritoneum: There is no intraperitoneal free air or abdominal ascites. Lymphadenopathy: None. Pelvic viscera: The prostate gland is heterogeneous. The bladder and seminal vesicles are normal as i harshad. There are bilateral fat-containing inguinal hernias. Skeletal structures: The skeletal structures are osteopenic. Moderate lumbosacral spondylosis is obse rved. No lytic or blastic lesions are seen. IMPRESSION: 1. Findings suggest a mild nonspecific colitis of the left colon. This could be on an infectious, inf lammatory, or ischemic basis and clinical correlation will be required. 2. There is a 5.6 x 5.6 cm infrarenal abdominal aortic aneurysm as detailed above. 3. Moderate colonic diverticulosis without CT evidence of acute diverticulitis. 4. Additional findings as above. ACT 112: Negative or not required by law. Electronically signed by: Gopal Adam M.D. 07/11/2020 4:00 PM
[2020-07-11] MEDS ORDERED: INSULIN GLARGINE SOLOSTAR 100 UNITS/ML 3 ML PEN SC STA (16:35)
[2020-07-11] MEDS ORDERED: LAVAGE SOLUTION 4000ML PO SCH ×2 (17:00→18:00)
[2020-07-11] MEDS: metroNIDAZOLE 500 MG/100 ML BAG IV SCH (17:56)
--- NOTE | 2020-07-11 18:12 | Electrocardiogram Report ---
Test Reason : Blood Pressure : / mmHG Vent. Rate : 068 BPM Atrial Rate : 068 BPM P-R Int : 192 ms QRS Dur : 070 ms QT Int : 392 ms P-R-T Axes : 049 035 036 degrees QTc Int : 416 ms Poor data quality, interpretation may be adversely affected Normal sinus rhythm Normal ECG When compared with ECG of 28-OCT-2016 06:59, No significant change was found Confirmed by Talha Lynch ([id number]) on 07/11/2020 6:12:24 PM Referred By: Confirmed By:David Lynch
--- NOTE | 2020-07-11 18:17 | Electrocardiogram Report ---
Test Reason : Blood Pressure : / mmHG Vent. Rate : 072 BPM Atrial Rate : 072 BPM P-R Int : 208 ms QRS Dur : 072 ms QT Int : 382 ms P-R-T Axes : 059 043 039 degrees QTc Int : 418 ms Sinus rhythm with Premature atrial complexes Otherwise normal ECG When compared with ECG of 11-JUL-2020 09:08, (unconfirmed) Premature atrial complexes are now Present Confirmed by Talha Lynch ([id number]) on 07/11/2020 6:17:15 PM Referred By: REFERRED SELF Confirmed By:David Lynch
[2020-07-11] MEDS: CIPROFLOXACIN / D5W 200 MG/100 ML BAG IV SCH (19:13)
--- NOTE | 2020-07-11 20:04 | Cardiology Consultation ---
Date of Consultation July 11, 2020 Assessment & Plan (1) Rectal bleeding: (2) Elevated troponin: Patient presented via the emergency room for complaint of rectal bleeding. He has no cardiac complaints. EKG without abnormality. Mild troponin I elevation noted in the setting of known chronic coronary heart disease as well as peripheral arterial disease. Recommend ongoing observation with close follow-up of his hemoglobin and hematocrit. If felt to be clinically indicated, at present, I do not think the mild troponin I elevation precludes proceeding with endoscopy. Agree with holding aspirin. As described, the 5.6 centimeter abdominal aortic aneurysm noted on CT of the abdomen pelvis today is a chronic finding, and patient has been felt to not be an operative candidate. History of Present Illness Attending Physician: Cedric Scott MD History of Present Illness Luigi Ireland is an 89 year old male seen in cardiology consultation per the request of Lolis Jason and Dr Scott for the evaluation of a mild troponin elevation.The patient follows with Selena Oshea PA-C and Dr Daniels of our practice. He has a long-standing history of coronary heart disease with remote PCI, stenting of the right coronary artery in 1996 with single-vessel coronary heart disease noted at that time. 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 He is also followed for an abdominal aortic aneurysm by [facility] vascular surgery, that on most recent vascular surgery follow up visit in February,, a CT revealed maximum dimension of 5.6 centimeters. He also has known severe bilateral common femoral artery atherosclerosis. Due to the patient's anatomical constraints, he has been felt to be a poor candidate for endovascular repair, and that the risk for open abdominal aortic aneurysm repair was prohibitive we high, and therefore surveillance without operative intervention has been pursued. The patient presented to [facility] with noted blood per rectum that he found in bed this morning. His hemoglobin on presentation the hospital, was 11.9, with repeat of 10.3 today at 2:25 p.m.. His most recent prior outpatient hemoglobin on 05/02/2020 was 11.6. He is on aspirin 81 milligrams daily as an outpatient, with no other anticoagulation or anti-platelet therapy. As part of his workup, troponin levels had been performed, with minimal elevation of 0.099, and 0.193ng/ml as measured thus far today. During my assessment, he had no cardiac complaints. EKG performed times to revealed normal sinus rhythm without repolarization changes to suggest acute ischemia. He remains in sinus rhythm on telemetry. Echocardiogram performed today reveals mild concentric left ventricular hypertrophy, no regional wall motion abnormalities, LVEF 60 to 65%. Allergies Allergy/AdvReac Type Severity Reaction Status Date / Time No Known Allergies Allergy Unknown Unverified 07/11/20 09:15 Home Medications Home Medications Medication Instructions Recorded Confirmed Type calcitriol [Rocaltrol] 0.25 mg PO MOWEFR@0800 08/01/18 07/11/20 History metoprolol succinate [Toprol XL] 12.5 mg PO QAM 08/01/18 07/11/20 History amlodipine 5 mg PO DAILY 07/11/20 07/11/20 History aspirin 81 mg PO HS 07/11/20 07/11/20 History buspirone 10 mg PO BID 07/11/20 07/11/20 History escitalopram oxalate 10 mg PO DAILY 07/11/20 07/11/20 History furosemide 40 mg PO DAILY 07/11/20 07/11/20 History glipizide 10 mg PO BID 07/11/20 07/11/20 History hydrochlorothiazide 12.5 mg PO QAM 07/11/20 07/11/20 History linagliptin [Tradjenta] 5 mg PO DAILY 07/11/20 07/11/20 History omeprazole 40 mg PO DAILY 07/11/20 07/11/20 History rosuvastatin 10 mg PO DAILY 07/11/20 07/11/20 History tamsulosin 0.4 mg PO DAILY 07/11/20 07/11/20 History Patient History Medical History Abdominal aortic aneurysm Anxiety CAD (coronary artery disease) CKD (chronic kidney disease), stage III Diabetes Diabetes mellitus, type II Gastric ulcer GERD (gastroesophageal reflux disease) HTN (hypertension) Hyperlipidemia PAD (peripheral artery disease) Surgical History History of biopsy History of hernia repair History of partial gastrectomy Stented coronary artery Family History Other Diabetes Social History Smoking Status: Former smoker Smoking End Date: 1970; Second Hand Exposure: No; Do You Dip or Chew Tobacco: No; Tobacco Cessation Education Requested by Patient: No Hx Alcohol Use: Yes Hx Substance Use: No Preferred Language: Yi Communication Ability: Effective Test Equipment Mechanic Required: No Beliefs That Will Affect Care: None Current Living Situation: Alone Other Information That Helps Us Care for You: No Feels Safe at Home: Yes Safety Concerns: Feels Safe At This Time Physical Exam Physical Exam: Temp Pulse Resp BP Pulse Ox 36.8 C 58 L 18 134/58 L 94 07/11/20 19:40 07/11/20 19:40 07/11/20 19:40 07/11/20 19:40 07/11/20 19:40 Constitutional: WD/WN, vitals as above Respiratory: normal respiratory effort, lungs clear to auscultation Cardiovascular: RRR, no murmur, no edema Gastrointestinal (Abdomen): normal bowel sounds, soft, nontender, no hepatosplenomegaly Musculoskeletal: no cyanosis or clubbing, extremities motor strength 5/5 Neurologic: PERRL, EOMI, accommodation nl, no face palsy, no dysarthria Results & Data ([facility]) Vital Signs (Past 12 Hours) Vital Signs Temp Pulse Pulse Resp BP BP Pulse Ox 07/11/20 19:40 36.8 C 58 L 18 134/58 L 94 07/11/20 15:00 37 C 63 20 135/61 93 07/11/20 12:00 74 20 160/83 H 95 07/11/20 11:30 71 24 152/99 H 07/11/20 11:00 75 15 145/82 H 95 07/11/20 10:30 73 22 141/78 H 93 07/11/20 10:05 67 20 142/74 H 95 07/11/20 09:30 68 22 139/78 94 07/11/20 09:05 69 21 154/76 H 94 07/11/20 08:59 95 07/11/20 08:40 95 07/11/20 08:26 36.7 C 78 20 168/81 H 93 Laboratory Results Cardiac Enzymes 07/11/20 07/11/20 Range/Units 08:41 14:25 AST 16 (15-37) U/L Troponin I 0.099 H* 0.193 H* (0-0.045) ng/ml Coagulation 07/11/20 Range/Units 08:41 PT 10.9 (9.0-12.0) Seconds APTT 25.1 (21.0-31.0) Seconds CBC 07/11/20 07/11/20 Range/Units 08:41 14:25 WBC 12.49 H (4.8-10.8) K/uL RBC 3.84 L (4.7-6.1) M/uL Hgb 11.9 L 10.3 L (14.0-18.0) g/dL Hct 36.7 L 31.0 L (42-52) % Plt Count 240 (130-400) K/uL Neut # (Auto) 8.15 H (1.4-6.5) K/uL Lymph # (Auto) 2.72 (1.2-3.4) K/uL [place] # (Auto) 0.88 H (0.11-0.59) K/uL Eos # (Auto) 0.65 H (0-0.5) K/uL Baso # (Auto) 0.05 (0-0.2) K/uL Comprehensive Metabolic Panel 07/11/20 Range/Units 08:41 Sodium 140 (136-145) mmol/L Potassium 4.4 (3.5-5.1) mmol/L Chloride 108 H (98-107) mmol/L Carbon Dioxide 25 (21-32) mmol/L BUN 37 H (7-18) mg/dl Creatinine 2.14 H (0.6-1.4) mg/dl Glucose 152 H (70-99) mg/dl Calcium 8.9 (8.5-10.1) mg/dl AST 16 (15-37) U/L ALT 19 (12-78) U/L Alkaline Phosphatase 58 (45-117) U/L Total Protein 8.5 H (6.4-8.2) gm/dl Albumin 3.4 (3.4-5.0) gm/dl Intake and Output 07/11/20 07/11/20 07/11/20 06:59 14:59 22:59 Intake Total 82.667 / 258.667 176 / 258.667 Output Total Balance 81.667 / 257.667 176 / 257.667 Intake: IV 82.667 / 258.667 176 / 258.667 D5w and Nss 1,000 ml @ 80 mls/ 82.667 / 158.667 76 / 158.667 hr IV .[id number] VERNELL Rx#:[id number] FLAGYL 500 mg In 100 ml @ 100 100 / 100 mls/hr IV Q8H VERNELL Rx#:[id number] Output: # Bowel Movements Other: Other Intake Source NPO Weight 72 kg Patient Weight 07/12/20 06:59 Weight 72 kg
[2020-07-11 20:48] LABS: Basophils # (auto) 0.06 K/uL (0-0.2); Basophils % (auto) 0.8 %; Eosinophils # (auto) 0.35 K/uL (0-0.5); Eosinophils % (auto) 4.9 %; Hematocrit (blood only) 31.3 % (42-52); Hemoglobin 10.5 g/dL (14.0-18.0); Immature Granulocytes # (auto) 0.01 K/uL (0.00-0.02); Immature Granulocytes % (auto) 0.1 %; Lymphocytes # (auto) 2.14 K/uL (1.2-3.4); Lymphocytes % (auto) 29.8 %; Mean Corpuscular Hgb Conc 33.5 g/dL (32-36); Mean Corpuscular Volume 95.4 fL (80-100); Mean Platelet Volume 9.6 fL (7.4-10.4); Monocytes # (auto) 0.57 K/uL (0.11-0.59); Monocytes % (auto) 7.9 %; Neutrophils # (auto) 4.06 K/uL (1.4-6.5); Neutrophils % (auto) 56.5 %; Platelet Count 200 K/uL (130-400); RDW Coefficient of Variation 14.1 % (11.5-14.5); RDW Standard Deviation 49.1 fL (36.4-46.3); Red Blood Count 3.28 M/uL (4.7-6.1); White Blood Count 7.19 K/uL (4.8-10.8)
[2020-07-11 21:07] LABS: Albumin Level 2.9 gm/dl (3.4-5.0); BUN Creatinine Ratio 16.3 (10-20); Creatinine Clr Calc Pharmacy 24.6 ml/min; Est GFR (African American) 38.6; Est GFR (Non-African American) 33.3
[2020-07-11 21:16] LABS: Albumin Globulin Ratio 0.7 (0.9-2); Bilirubin,Total 0.3 mg/dl (0.2-1); Globulin 4.3 gm/dl (2.5-4.0); Total Protein 7.2 gm/dl (6.4-8.2); Troponin I 0.274 ng/ml (0-0.045)
[2020-07-12] MEDS: metroNIDAZOLE 500 MG/100 ML BAG IV SCH ×2 (00:49→08:04)
[2020-07-12] MEDS: CIPROFLOXACIN / D5W 200 MG/100 ML BAG IV SCH (05:35)
[2020-07-12 07:06] LABS: Hematocrit (blood only) 32.4 % (42-52); Hemoglobin 10.5 g/dL (14.0-18.0); Mean Corpuscular Hemoglobin 30.7 pg (25-34); Mean Corpuscular Hgb Conc 32.4 g/dL (32-36); Mean Corpuscular Volume 94.7 fL (80-100); Mean Platelet Volume 9.4 fL (7.4-10.4); Platelet Count 210 K/uL (130-400); RDW Coefficient of Variation 14.1 % (11.5-14.5); RDW Standard Deviation 48.1 fL (36.4-46.3); Red Blood Count 3.42 M/uL (4.7-6.1); White Blood Count 7.56 K/uL (4.8-10.8)
[2020-07-12 07:35] LABS: Albumin Level 2.7 gm/dl (3.4-5.0); BUN Creatinine Ratio 15.1 (10-20); Calcium 8.6 mg/dl (8.5-10.1); Creatinine Clr Calc Pharmacy 28.7 ml/min; Est GFR (African American) 46.4; Potassium 3.7 mmol/L (3.5-5.1)
[2020-07-12 07:42] LABS: Albumin Globulin Ratio 0.6 (0.9-2); Bilirubin,Total 0.4 mg/dl (0.2-1); Globulin 4.2 gm/dl (2.5-4.0); Total Protein 6.9 gm/dl (6.4-8.2); Troponin I 0.219 ng/ml (0-0.045)
[2020-07-12] MEDS: INSULIN ASPART 100 UNITS/ML 3 ML PEN SC SCH ×3 (07:58→20:36)
[2020-07-12] MEDS: METOPROLOL SUCC 25MG EXT REL TAB PO SCH (07:58)
[2020-07-12] MEDS ORDERED: Nursing to Pharmacy Communication SCH ×2 (11:00→15:30)
[2020-07-12] MEDS: PANTOprazole 40 MG in SYRINGE 0 ML IV SCH (11:31)
--- NOTE | 2020-07-12 11:45 | History & Physical Bridge Note ---
Date of Service July 12, 2020 History & Physical Bridge Note I have examined the patient, reviewed the History & Physical and in the interval since the performance of the History & Physical I have noted the following changes of clinical significance: no changes noted
[2020-07-12] MEDS ORDERED: INSULIN ASPART 100 UNITS/ML 3 ML PEN SC SCH (12:00)
--- NOTE | 2020-07-12 12:22 | Anesthesiology Consultation ---
Date of Service July 12, 2020 Assessment & Plan (1) Encounter for pre-operative examination: History Surgery Operation Date: 07/12/20 17:00 Proposed Procedures p Colonoscopy EGD Dr. Tompkins - Ayaan Tompkins MD Height/Weight Height: 5 ft 5 in Weight: 69.6 kg Allergies Allergy/AdvReac Type Severity Reaction Status Date / Time No Known Allergies Allergy Unknown Unverified 07/12/20 12:09 Medications Home Medications Medication Instructions Recorded Confirmed Last Taken calcitriol [Rocaltrol] 0.25 mg PO MOWEFR@0800 08/01/18 07/11/20 07/10/20 metoprolol succinate [Toprol XL] 12.5 mg PO QAM 08/01/18 07/11/20 07/10/20 amlodipine 5 mg PO DAILY 07/11/20 07/11/20 07/10/20 aspirin 81 mg PO HS 07/11/20 07/11/20 07/10/20 buspirone 10 mg PO BID 07/11/20 07/11/20 Unknown escitalopram oxalate 10 mg PO DAILY 07/11/20 07/11/20 07/10/20 furosemide 40 mg PO DAILY 07/11/20 07/11/20 07/10/20 glipizide 10 mg PO BID 07/11/20 07/11/20 07/10/20 hydrochlorothiazide 12.5 mg PO QAM 07/11/20 07/11/20 07/10/20 linagliptin [Tradjenta] 5 mg PO DAILY 07/11/20 07/11/20 Unknown omeprazole 40 mg PO DAILY 07/11/20 07/11/20 Unknown rosuvastatin 10 mg PO DAILY 07/11/20 07/11/20 Unknown tamsulosin 0.4 mg PO DAILY 07/11/20 07/11/20 Unknown Active Medications Generic Name Dose Route Start Last Admin Trade Name Freq PRN Reason Stop Dose Admin Pantoprazole Sodium 40 mg/ 10 mls @ 5 mls/min 07/11/20 13:30 07/12/20 11:31 Syringe IV 08/10/20 13:29 5 mls/min DAILY@1100 VERNELL Administration Metronidazole 500 mg in 100 mls @ 100 mls/hr 07/11/20 17:00 07/12/20 09:10 Flagyl IV 07/21/20 16:59 Infused Q8H VERNELL Infusion Ciprofloxacin Lactate 200 mg in 100 mls @ 100 mls/hr 07/11/20 18:00 07/12/20 06:38 Cipro / D5w IV 07/21/20 17:59 Infused Q12H VERNELL Infusion Protocol Insulin Aspart 0 units 07/12/20 12:00 07/12/20 11:45 Insulin Aspart 100 Units/Ml 3 Ml Pen SC 08/10/20 12:59 Not Given Q6 VERNELL Metoprolol Succinate 12.5 mg 07/11/20 12:32 07/12/20 07:58 Metoprolol Succ 25mg Ext Rel Tab PO 08/10/20 12:31 Not Given QAM VERNELL NPO Date Last Intake of Fluids: 07/12/20 Time Last Intake of Fluids: 01:00 Date Last Intake of Solids: 07/10/20 Time Last Intake of Solids: 12:00 Past Medical History Medical History (Updated 07/12/20 @ 12:24 by Celsa Davis MD) Abdominal aortic aneurysm Anemia Anxiety CAD (coronary artery disease) CKD (chronic kidney disease), stage III Diabetes Diabetes mellitus, type II Gastric ulcer GERD (gastroesophageal reflux disease) HTN (hypertension) Hyperlipidemia PAD (peripheral artery disease) Past Family History Family History Other Diabetes Past Surgical History Surgical History History of biopsy History of hernia repair History of partial gastrectomy Stented coronary artery Social History Smoking Status: Former smoker tobacco type: cigarettes Do You Dip or Chew Tobacco: No Smoking End Date: 1970 Hx Alcohol Use: Yes alcohol intake frequency: other Alcohol Intake Frequency Comment: occasionally Hx Substance Use: No substance use type: does not use Physical Exam Vital Signs Last Vital Signs Temp 36.9 C 07/12/20 12:05 Pulse 68 07/12/20 12:05 Resp 18 07/12/20 12:05 BP 160/73 H 07/12/20 12:05 Pulse Ox 95 07/12/20 12:05 Testing Laboratory Results 07/12/20 06:37 07/12/20 06:37 PT 10.9 Seconds (9.0-12.0) 07/11/20 08:41 INR 1.0 (0.9-1.1) 07/11/20 08:41 APTT 25.1 Seconds (21.0-31.0) 07/11/20 08:41 Blood Type A Positive 07/11/20 08:41 Antibody Screen NEGATIVE 07/11/20 08:41 07/11/20 17:18 Escherichia coli Shiga Toxins Test - Preliminary Stool Stool Culture - Preliminary No Salmonella isolated to date, No Shigella isolated to date, No Campylobacter jejuni isolated to date. 07/12/20 07/12/20 07/12/20 11:36 07:41 06:05 POC Glucose 138 H 222 H 135 H Electrocardiogram Date: 07/12/20 Normal sinus rhythm Normal ECG When compared with ECG of 11-JUL-2020 12:45, Premature atrial complexes are no longer Presen Chest X-Ray Date: 07/11/20 IMPRESSION: Cardiomegaly with no acute cardiopulmonary abnormality. Echocardiogram Date: 07/11/20 EF: 60-65% Other Findings: + LVH (mild)
[2020-07-12] MEDS ORDERED: LIDOCAINE HCL 2% 2 ML VIAL/AMP(20MG/ML) INFIL ONE (12:32)
[2020-07-12] MEDS ORDERED: PROPOFOL IV EMULSION 10 MG/ML 20 ML VIAL IV ONE (12:32)
--- NOTE | 2020-07-12 13:35 | GI REPORT ---
Patient Name: Luigi Ireland Procedure Date: 07/12/2020 12:29 PM Date of : 1930 Admit Type: Inpatient Age: 89 Gender: Male Attending MD: Ayaan Tompkins MD Procedure: Upper GI endoscopy Providers: Ayaan Tompkins MD Referring MD: Neville Lima Indications: Hematochezia Medicines: Propofol per Anesthesia Complications: No immediate complications. Estimated Blood Loss: Estimated blood loss: none. Procedure: Pre-Anesthesia Assessment: - Prior to the procedure, a History and Physical was performed, and patient medications, allergies and sensitivities were reviewed. The patient's tolerance of previous anesthesia was reviewed. - The risks and benefits of the procedure and the sedation options and risks were discussed with the patient. All questions were answered and informed consent was obtained. - Patient identification and proposed procedure were verified prior to the procedure by the physician and the nurse. The procedure was verified in the procedure room. - Pre-procedure physical examination revealed no contraindications to sedation. After obtaining informed consent, the endoscope was passed under direct vision. Throughout the procedure, the patient's blood pressure, pulse, and oxygen saturations were monitored continuously. The Endoscope was introduced through the mouth, and advanced to the afferent and efferent jejunal loops. The upper GI endoscopy was accomplished without difficulty. The patient tolerated the procedure well. Findings: The examined esophagus was normal. A small hiatal hernia was present. Evidence of a patent Billroth II gastrojejunostomy was found. The gastrojejunal anastomosis was characterized by healthy appearing mucosa. This was traversed. The efferent limb was examined. The afferent limb was examined. The examined duodenum was normal. The examined jejunum was normal. Impression: - Small hiatal hernia. - Patent Billroth II gastrojejunostomy was found, characterized by healthy appearing mucosa. - Normal examined duodenum. - Normal examined jejunum. - No specimens collected. Recommendation: - Perform a colonoscopy today. Ayaan Tompkins MD 07/12/2020 1:34:43 PM This report has been signed electronically. Note Initiated On: 07/12/2020 12:29 PM Number of Addenda: 0 I attest to the content of the Intraoperative Record and orders documented therein, exceptions below {[id number]}
--- NOTE | 2020-07-12 13:41 | GI REPORT ---
Patient Name: Luigi Ireland Procedure Date: 07/12/2020 12:30 PM Date of : 1930 Admit Type: Inpatient Age: 89 Gender: Male Attending MD: Ayaan Tompkins MD Procedure: Colonoscopy Providers: Ayaan Tompkins MD Referring MD: Neville Lima Indications: Rectal bleeding Medicines: Propofol per Anesthesia Complications: No immediate complications. Estimated Blood Loss: Estimated blood loss: none. Procedure: Pre-Anesthesia Assessment: - Prior to the procedure, a History and Physical was performed, and patient medications, allergies and sensitivities were reviewed. The patient's tolerance of previous anesthesia was reviewed. - The risks and benefits of the procedure and the sedation options and risks were discussed with the patient. All questions were answered and informed consent was obtained. - Patient identification and proposed procedure were verified prior to the procedure by the physician and the nurse. The procedure was verified in the procedure room. - Pre-procedure physical examination revealed no contraindications to sedation. After I obtained informed consent, the scope was passed under direct vision. Throughout the procedure, the patient's blood pressure, pulse, and oxygen saturations were monitored continuously. The Colonoscope was introduced through the anus and advanced to the terminal ileum. The colonoscopy was performed without difficulty. The patient tolerated the procedure well. The quality of the bowel preparation was good. The terminal ileum, ileocecal valve, appendiceal orifice, and rectum were photographed. Findings: The perianal and digital rectal examinations were normal. The terminal ileum appeared normal. Scattered small and large-mouthed diverticula were found in the sigmoid colon. Non-bleeding internal hemorrhoids were found during retroflexion. The hemorrhoids were small. Impression: - No evidence of GI bleeding, likely had diverticular bleed that resolved. - The examined portion of the ileum was normal. - Diverticulosis in the sigmoid colon. - Non-bleeding internal hemorrhoids. - No specimens collected. Recommendation: - [facility]. - Advance diet as tolerated. - If bleeding recurs then obtain a bleeding scan. - Recall GI if needed. Ayaan Tompkins MD 07/12/2020 1:41:02 PM This report has been signed electronically. Note Initiated On: 07/12/2020 12:30 PM Number of Addenda: 0 I attest to the content of the Intraoperative Record and orders documented therein, exceptions below {[id number]}
--- NOTE | 2020-07-12 14:50 | Anesthesiology Progress Note ---
Date of Service July 12, 2020 Anesthesia Post Procedure Vital Signs Vital Signs: Temp Pulse Pulse Resp BP Pulse Ox 07/12/20 14:05 64 16 159/60 H 93 07/12/20 13:49 62 18 164/72 H 91 07/12/20 13:35 63 18 136/49 L 94 07/12/20 12:05 36.9 C 68 18 160/73 H 95 07/12/20 11:24 37.1 C 67 16 145/66 H 91 07/12/20 07:20 73 07/12/20 07:00 37.1 C 71 18 147/75 H 92 07/12/20 03:56 37.4 C 67 18 159/75 H 93 07/11/20 23:30 72 07/11/20 23:04 36.6 C 96 H 20 132/66 94 07/11/20 22:45 67 07/11/20 19:40 36.8 C 58 L 18 134/58 L 94 07/11/20 15:00 37 C 63 20 135/61 93 Transfer of Care Handoff Completed per policy Notes Mental Status: alert / awake / arousable and participated in evaluation Patient Amnestic to Procedure: Yes Nausea / Vomiting: adequately controlled Pain: adequately controlled Airway Patency, RR, SpO2: stable & adequate BP & HR: stable & adequate Hydration State: stable & adequate Anesthetic Complications: no major complications apparent and Pt Satisfied with anesthetic care
--- NOTE | 2020-07-12 16:10 | Hospitalist Progress Note ---
Date of Service July 12, 2020 Assessment & Plan (1) Rectal bleeding: (1) Rectal bleeding, likely secondary to Diverticular Bleed: Pt is 89 y/o M with PMH DM II, HTN, dyslipidemia, CAD s/p PTCA in 1996, CKD III, gastric ulcer s/p partial gastrectomy, AAA, anxiety, depression, PAD, GERD presented to ER with complaint of rectal bleeding started this morning. Denies fever/chills, N/V/D/C, abdominal pain, CP, SOB, dizziness, syncope History colonoscopy in 2006: Polyps, diverticulosis In ER patient afebrile, vitals stable with pulse 78, BP: 168/81 H/H: 11.9/36. (Baseline Hgb: 11.6 on 05/02/2020), PLT:240, normal coags KUB:No evidence for bowel obstruction. CT ABD/Pelvis: 1. Findings suggest a mild nonspecific colitis of the left colon. This could be on an infectious, inflammatory, or ischemic basis and clinical correlation will be required. 2. There is a 5.6 x 5.6 cm infrarenal abdominal aortic aneurysm as detailed above. 3. Moderate colonic diverticulosis without CT evidence of acute diverticulitis.] 4. Additional findings as above. Hg 11.9 to 10.5 no recurrence of hematochezia so far s/p EGD: unrevealing s/p Colonoscopy: (+) Diverticulosis advance diet to soft for dinner repeat Hg tomorrow HOLD Aspirin (2) Elevated troponin: Troponin: 0.09. EKG sinus rhythm without acute ST changes. No CP, SOB - trop 0.09 to 0.2 - likely Demand Ischemia secondary to Above - no cardiac symptoms - Bailing Machine Operator Dr. Sandoval consulted no further interventions at this time (3) Diabetes mellitus, type II: A1c: 7.4 on 05/18/2020 -Hold oral home meds -Monitor BSG -NovoLog sliding scale per protocol (4) CAD (coronary artery disease): S/P stent in 1996 History echo 2017: EF: 55-59%, grade 1 diastolic dysfunction, mild aortic valve sclerosis -Holding aspirin, statin for now as above -Continue metoprolol (5) HTN (hypertension): BP's stable. Most recent BP 152/99 -Continue metoprolol succinate and Amlodipine (6) CKD (chronic kidney disease), stage III: Cr: 2.14. Baseline Cr: 1.9-2.0. -Monitor renal functions, avoid nephrotoxic agents when possible (7) GERD (gastroesophageal reflux disease): (8) History of partial gastrectomy: - H/O gastric ulcer s/p partial gastrectomy in 1960's - resume oral PPI (9) Anxiety: -resume meds DVT Prophylaxis -SCDs secondary to rectal bleeding DNR/DNI as per discussion with pt Follows with Dr Ganesh Livingston for routine care Disposition anticipate d/c home tomorrow when medically stable plan of care discussed with patient in detail he would like to go home today, explained he still needs to be monitored overnight for possible re-bleeding all questions answered he is understanding, agreeable, comfortable with the plan of care Admission and Anticipated Discharge Date Admission Date: July 11, 2020 Subjective ff up for rectal bleeding s/p EGD and Colonoscopy resting in bed, comfortable, oriented states he feels fine no abdominal pain ,nausea no melena/hematochezia today no chest pain, dyspnea, dizziness, palpitations no other symptoms Review of Systems Review of Systems: All systems reviewed & are unremarkable except as noted in HPI & below Physical Exam Physical Exam: General- oriented x 2, not in distress, speaks in sentences with no effort or accessory muscle use Head- atraumatic Eyes- PERRL, EOMI, anicteric ENT- oropharynx clear Neck- supple, no JVD, no adenopathy, no thyromegaly; carotids +2/2, no bruits appreciated Lungs- clear to auscultation bilaterally, no rales/wheezes Heart- normal rate, regular rhythm; no murmur, no gallop, no rub appreciated Abdomen- normal bowel sounds, nondistended, soft, nontender, no masses or hepatosplenomegaly Extremities- no pretibial edema, no calf tenderness; peripheral pulses intact Neuro- alert, oriented x 2; CN 2-12 grossly intact; motor 5/5 bilaterally;sensation 100% on all extremities; no other gross focal neurologic deficits Skin- warm & dry Results & Data Results & Data ([facility]) Vital Signs (Past 12 Hours) Vital Signs Temp Pulse Pulse Resp BP Pulse Ox 07/12/20 15:24 37 C 75 18 150/73 H 93 07/12/20 14:05 64 16 159/60 H 93 07/12/20 13:49 62 18 164/72 H 91 07/12/20 13:35 63 18 136/49 L 94 07/12/20 12:05 36.9 C 68 18 160/73 H 95 07/12/20 11:24 37.1 C 67 16 145/66 H 91 07/12/20 07:20 73 07/12/20 07:00 37.1 C 71 18 147/75 H 92 Laboratory Results Laboratory Results - last 24 hr 07/11/20 07/11/20 07/11/20 17:18 17:27 20:15 WBC 7.19 RBC 3.28 L Hgb 10.5 L Hct 31.3 L MCV 95.4 MCH 32.0 MCHC 33.5 RDW Std Deviation 49.1 H RDW Coeff of Vikas 14.1 Plt Count 200 MPV 9.6 Immature Gran % (Auto) 0.1 Neut % (Auto) 56.5 Lymph % (Auto) 29.8 [place] % (Auto) 7.9 Eos % (Auto) 4.9 Baso % (Auto) 0.8 Neut # (Auto) 4.06 Lymph # (Auto) 2.14 [place] # (Auto) 0.57 Eos # (Auto) 0.35 Baso # (Auto) 0.06 Immature Gran # (Auto) 0.01 Sodium Potassium Chloride Carbon Dioxide Anion Gap BUN Creatinine Est Cr Clr Drug Dosing Est GFR ( Amer) Est GFR (Non-Af Amer) BUN/Creatinine Ratio Glucose POC Glucose 226 H Calcium Total Bilirubin AST ALT Alkaline Phosphatase Troponin I Total Protein Albumin Globulin Albumin/Globulin Ratio Stl C. diff Tox B Gene Negative Cdiff Gene COVID-19 Eval Order SARS-CoV-2, RNA, NAAT 07/11/20 07/11/20 07/11/20 20:15 21:27 23:57 WBC RBC Hgb Hct MCV MCH MCHC RDW Std Deviation RDW Coeff of Vikas Plt Count MPV Immature Gran % (Auto) Neut % (Auto) Lymph % (Auto) [place] % (Auto) Eos % (Auto) Baso % (Auto) Neut # (Auto) Lymph # (Auto) [place] # (Auto) Eos # (Auto) Baso # (Auto) Immature Gran # (Auto) Sodium 139 Potassium 4.0 Chloride 106 Carbon Dioxide 25 Anion Gap 8.0 BUN 29 H Creatinine 1.77 H D Est Cr Clr Drug Dosing 24.6 Est GFR ( Amer) 38.6 Est GFR (Non-Af Amer) 33.3 BUN/Creatinine Ratio 16.3 Glucose 112 H POC Glucose 121 H 123 H Calcium 9.0 Total Bilirubin 0.3 AST 15 ALT 16 Alkaline Phosphatase 50 Troponin I 0.274 H* Total Protein 7.2 Albumin 2.9 L Globulin 4.3 H Albumin/Globulin Ratio 0.7 L Stl C. diff Tox B Gene COVID-19 Eval Order SARS-CoV-2, RNA, NAAT 07/12/20 07/12/20 07/12/20 06:05 06:37 06:37 WBC 7.56 RBC 3.42 L Hgb 10.5 L Hct 32.4 L MCV 94.7 MCH 30.7 MCHC 32.4 RDW Std Deviation 48.1 H RDW Coeff of Vikas 14.1 Plt Count 210 MPV 9.4 Immature Gran % (Auto) Neut % (Auto) Lymph % (Auto) [place] % (Auto) Eos % (Auto) Baso % (Auto) Neut # (Auto) Lymph # (Auto) [place] # (Auto) Eos # (Auto) Baso # (Auto) Immature Gran # (Auto) Sodium 141 Potassium 3.7 Chloride 108 H Carbon Dioxide 26 Anion Gap 7.0 BUN 23 H Creatinine 1.52 H Est Cr Clr Drug Dosing 28.7 Est GFR ( Amer) 46.4 Est GFR (Non-Af Amer) 40.0 BUN/Creatinine Ratio 15.1 Glucose 126 H POC Glucose 135 H Calcium 8.6 Total Bilirubin 0.4 AST 17 ALT 15 Alkaline Phosphatase 48 Troponin I 0.219 H* Total Protein 6.9 Albumin 2.7 L Globulin 4.2 H Albumin/Globulin Ratio 0.6 L Stl C. diff Tox B Gene COVID-19 Eval Order SARS-CoV-2, RNA, NAAT 07/12/20 07/12/20 07/12/20 07:41 09:05 09:05 WBC RBC Hgb Hct MCV MCH MCHC RDW Std Deviation RDW Coeff of Vikas Plt Count MPV Immature Gran % (Auto) Neut % (Auto) Lymph % (Auto) [place] % (Auto) Eos % (Auto) Baso % (Auto) Neut # (Auto) Lymph # (Auto) [place] # (Auto) Eos # (Auto) Baso # (Auto) Immature Gran # (Auto) Sodium Potassium Chloride Carbon Dioxide Anion Gap BUN Creatinine Est Cr Clr Drug Dosing Est GFR ( Amer) Est GFR (Non-Af Amer) BUN/Creatinine Ratio Glucose POC Glucose 222 H Calcium Total Bilirubin AST ALT Alkaline Phosphatase Troponin I Total Protein Albumin Globulin Albumin/Globulin Ratio Stl C. diff Tox B Gene COVID-19 Eval Order Covid19 IDNow atMKSC SARS-CoV-2, RNA, NAAT NEGATIVE 07/12/20 07/12/20 11:36 15:29 WBC RBC Hgb Hct MCV MCH MCHC RDW Std Deviation RDW Coeff of Vikas Plt Count MPV Immature Gran % (Auto) Neut % (Auto) Lymph % (Auto) [place] % (Auto) Eos % (Auto) Baso % (Auto) Neut # (Auto) Lymph # (Auto) [place] # (Auto) Eos # (Auto) Baso # (Auto) Immature Gran # (Auto) Sodium Potassium Chloride Carbon Dioxide Anion Gap BUN Creatinine Est Cr Clr Drug Dosing Est GFR ( Amer) Est GFR (Non-Af Amer) BUN/Creatinine Ratio Glucose POC Glucose 138 H 161 H Calcium Total Bilirubin AST ALT Alkaline Phosphatase Troponin I Total Protein Albumin Globulin Albumin/Globulin Ratio Stl C. diff Tox B Gene COVID-19 Eval Order SARS-CoV-2, RNA, NAAT
[2020-07-12] MEDS: AMLODIPINE BESYLATE 5 MG TAB PO SCH (17:46)
--- NOTE | 2020-07-12 19:17 | Electrocardiogram Report ---
Test Reason : Blood Pressure : / mmHG Vent. Rate : 066 BPM Atrial Rate : 066 BPM P-R Int : 190 ms QRS Dur : 072 ms QT Int : 402 ms P-R-T Axes : 052 030 052 degrees QTc Int : 421 ms Normal sinus rhythm Normal ECG When compared with ECG of 11-JUL-2020 12:45, Premature atrial complexes are no longer Present Confirmed by Talha Lynch ([id number]) on 07/12/2020 7:17:32 PM Referred By: REFERRED SELF Confirmed By:David Lynch
--- NOTE | 2020-07-13 04:04 | Communication Note ---
Date of Service: July 13, 2020 Patient going in and out of atrial flutter as per RN this a.m. Patient complaining of palpitations. AP PAFl New onset No prior documentation. Continue home beta-savanna Check a.m. electrolytes Will relay to AM provider.
[2020-07-13] MEDS ORDERED: MAGNESIUM SULFATE / D5W 1 GM/100 ML BAG IV ONE ×2 (04:06→05:21)
[2020-07-13] MEDS ORDERED: POTASSIUM CHLORIDE 20 MEQ TABCR PO STA (04:06)
[2020-07-13 05:02] LABS: Basophils # (auto) 0.02 K/uL (0-0.2); Basophils % (auto) 0.2 %; Eosinophils % (auto) 3.4 %; Hematocrit (blood only) 33.6 % (42-52); Hemoglobin 11.2 g/dL (14.0-18.0); Immature Granulocytes # (auto) 0.02 K/uL (0.00-0.02); Immature Granulocytes % (auto) 0.2 %; Lymphocytes # (auto) 2.11 K/uL (1.2-3.4); Lymphocytes % (auto) 23.8 %; Mean Corpuscular Hemoglobin 31.3 pg (25-34); Mean Corpuscular Hgb Conc 33.3 g/dL (32-36); Mean Corpuscular Volume 93.9 fL (80-100); Mean Platelet Volume 9.5 fL (7.4-10.4); Monocytes # (auto) 0.71 K/uL (0.11-0.59); Neutrophils % (auto) 64.4 %; Platelet Count 211 K/uL (130-400); RDW Coefficient of Variation 14.1 % (11.5-14.5); RDW Standard Deviation 48.3 fL (36.4-46.3); Red Blood Count 3.58 M/uL (4.7-6.1); White Blood Count 8.86 K/uL (4.8-10.8)
[2020-07-13 05:08] LABS: Partial Thromboplastin Time 26.7 Seconds (21.0-31.0)
[2020-07-13 05:13] LABS: BUN Creatinine Ratio 11.4 (10-20); Calcium 8.8 mg/dl (8.5-10.1); Est GFR (African American) 47.2; Est GFR (Non-African American) 40.7; Magnesium 1.7 mg/dl (1.8-2.4); Potassium 3.7 mmol/L (3.5-5.1)
[2020-07-13] MEDS: METOPROLOL SUCC 25MG EXT REL TAB PO SCH ×2 (05:20→07:28)
[2020-07-13] MEDS ORDERED: SODIUM CHLORIDE 0.9% 1000ML 500 ML IV ONE (05:23)
[2020-07-13] MEDS: AMLODIPINE BESYLATE 5 MG TAB PO SCH (07:29)
[2020-07-13] MEDS: INSULIN ASPART 100 UNITS/ML 3 ML PEN SC SCH ×2 (08:12→12:56)
[2020-07-13] MEDS ORDERED: PANTOprazole 40 MG TAB PO SCH (09:00)
--- NOTE | 2020-07-13 15:20 | Hospitalist Progress Note ---
Date of Service July 13, 2020 Assessment & Plan (1) Rectal bleeding: Rectal bleeding, likely secondary to Diverticular Bleed: Pt is 89 y/o M with PMH DM II, HTN, dyslipidemia, CAD s/p PTCA in 1996, CKD III, gastric ulcer s/p partial gastrectomy, AAA, anxiety, depression, PAD, GERD presented to ER with complaint of rectal bleeding started this morning. Denies fever/chills, N/V/D/C, abdominal pain, CP, SOB, dizziness, syncope History colonoscopy in 2006: Polyps, diverticulosis In ER patient afebrile, vitals stable with pulse 78, BP: 168/81 H/H: 11.9/36. (Baseline Hgb: 11.6 on 05/02/2020), PLT:240, normal coags KUB:No evidence for bowel obstruction. CT ABD/Pelvis: 1. Findings suggest a mild nonspecific colitis of the left colon. This could be on an infectious, inflammatory, or ischemic basis and clinical correlation will be required. 2. There is a 5.6 x 5.6 cm infrarenal abdominal aortic aneurysm as detailed above. 3. Moderate colonic diverticulosis without CT evidence of acute diverticulitis.] 4. Additional findings as above. Hg 11.9 -->10.5--> 11.2 no recurrence of hematochezia since admission s/p EGD: unrevealing s/p Colonoscopy: (+) Diverticulosis per GI, rectal bleeding likely secondary to Diverticular bleed may resume Aspirin 81mg po daily repeat CBC on ff up with PCP next week Mildly Elevated troponin: - Troponin: 0.09. EKG sinus rhythm without acute ST changes. No CP, SOB - trop 0.09 to 0.2 - likely Demand Ischemia secondary to Above - no cardiac symptoms - General Pediatrician Dr. Sandoval consulted no further interventions at this time Episode of Atrial Fibrillation - noted in telemetry- 1 hour duration, associated with palpitations - likely from missing AM dose of Metoprolol continue usual Metoprolol XL and ASA per Dr. Sandoval ff up and monitor as outpatient Diabetes mellitus, type II: A1c: 7.4 on 05/18/2020 resume usual DM meds CAD (coronary artery disease), S/P stent in 1996 -History echo 2017: EF: 55-59%, grade 1 diastolic dysfunction, mild aortic valve sclerosis - continue Aspirin, Lipitor, Metoprolol HTN (hypertension) - stable - Continue metoprolol succinate and Amlodipine CKD (chronic kidney disease), stage III: -stable GERD (gastroesophageal reflux disease): History of partial gastrectomy: - H/O gastric ulcer s/p partial gastrectomy in 1960s continue usual PPI Anxiety: - continue Escitalopram, Buspirone Disposition d/c home ff up with PCP 07/17/2020 plan of care discussed with patient in detail all questions answered he is understanding, agreeable, comfortable with the plan of care Admission and Anticipated Discharge Date Admission Date: July 11, 2020 Subjective ff up for rectal bleeding seen resting in bed, comfortable sitting in bed states he feels fine overall denies abdominal pain, no melena/hematochezia, no nausea no chest pain, dyspnea had palpitations this morning, correlates with episode of a fib 3-4am, resolved now no other symptoms denies having palpitations at home states he is ready and would like to be discharged today Review of Systems Review of Systems: All systems reviewed & are unremarkable except as noted in HPI & below Physical Exam Physical Exam: General- oriented x 3, not in distress, speaks in sentences with no effort or accessory muscle use Eyes- anicteric Neck- no JVD Lungs- clear BS no rales no wheezing Heart- normal rate, regular rhythm; no murmurs Abdomen- normal bowel sounds, nondistended, soft, nontender Extremities- no pretibial edema, no calf tenderness Neuro- alert, oriented x 3; no gross focal neurologic deficits Skin- warm & dry Results & Data Results & Data ([facility]) Vital Signs (Past 12 Hours) Vital Signs Temp Pulse Pulse Resp BP Pulse Ox 07/13/20 11:36 37 C 71 16 139/75 93 07/13/20 07:30 62 07/13/20 07:09 36.9 C 88 18 121/69 93 07/13/20 04:07 103 H 20 123/69 92
--- NOTE | 2020-07-13 15:48 | Discharge Summary ---
Date of Service July 13, 2020 Admission HPI Per Admitting Provider Pt is 89 y/o M with PMH DM II, HTN, dyslipidemia, CAD s/p PTCA in 1996, CKD III, gastric ulcer s/p partial gastrectomy, AAA, anxiety, depression, PAD, GERD presented to ER with complaint of rectal bleeding today. Patient states woke up this morning and noted red blood in his underwear and on his bedsheet. Patient states this morning had 2 episodes of sensation that he had to have a BM however when went to bathroom past red blood. He is unsure if he had any stool mixed in with the blood. Denies any abdominal pain, nausea, vomiting. Patient denies any lightheadedness, syncope, chest pain, shortness of breath. Denies h/o rectal bleeding or hemorrhoids in past. Denies recent diarrhea or constipation. Denies fever/chills, diaphoresis, OLSEN, dizziness, syncope, vision changes, neck pain, orthopnea, palpitations, cough, sore throat, rhinorrhea, abdominal pain, paresthesias, weakness, extremity weakness, extremity edema, rashes, urinary symptoms. History colonoscopy in 2006: Polyps, diverticulosis Admission Exam Per Admitting Provider General: no distress, WDWN Head: normocephalic, atraumatic Eyes: conjunctiva non-injected, anicteric ENT: hard of hearing, normal inspection external ears, nose, mucous membranes moist Neck: supple, trachea midline Lungs: clear, no respiratory distress, no wheezing/rhonchi/rales CV: RRR, no murmur, no pretibial edema Abd: normal BS, soft, non-tender Ext: no cyanosis, no calf tenderness Neuro: A&O x 3, no focal deficits noted, normal affect Skin: warm, dry Principal Diagnosis RECTAL BLEEDING, LIKELY SECONDARY TO DIVERTICULAR BLEED Discharge Exam General- oriented x 3, not in distress, speaks in sentences with no effort or accessory muscle use Eyes- anicteric Neck- no JVD Lungs- clear BS no rales no wheezing Heart- normal rate, regular rhythm; no murmurs Abdomen- normal bowel sounds, nondistended, soft, nontender Extremities- no pretibial edema, no calf tenderness Neuro- alert, oriented x 3; no gross focal neurologic deficits Skin- warm & dry Discharge Data Allergies Allergy/AdvReac Type Severity Reaction Status Date / Time No Known Allergies Allergy Unknown Unverified 07/12/20 12:09 Consultations 07/11/20 10:45 ED Decision to Admit Stat 07/11/20 12:32 Consult Case Management - Discharge Planning Routine Consult Gastroenterology Routine 07/11/20 16:39 Consult Cardiology Routine Procedures Performed Operation Date: 07/12/20 17:00 Actual Procedures s Esophagogastroduodenoscopy - Ayaan Tompkins MD p Colonoscopy - Ayaan Tompkins MD Ordered Studies 07/11/20 11:18 CT abd pelvis oral con only Stat COMPARISON STUDY: Abdominal radiograph dated 07/11/2020. TECHNIQUE: CT scan of the abdomen and pelvis is performed from the lung bases to the proximal femora. Images are reviewed in the axial, sagittal, and coronal planes. IV contrast was not administered for this examination. Oral contrast was utilized. A dose lowering technique was utilized adhering to the principles of ALARA. CT DOSE: 304.57 mGy.cm FINDINGS: Lung bases: The heart is normal in size and without pericardial effusion. The coronary arteries are densely calcified. Fibrotic change is noted at the lung bases. There is no airspace consolidation or pleural effusion. A small hiatal hernia is noted. Liver: The unenhanced liver is normal in size, contour, and attenuation. There is no intrahepatic biliary ductal dilatation. Gallbladder: Unremarkable. Spleen: Normal in size and attenuation. Pancreas: The unenhanced pancreas is atrophic and grossly unremarkable. Adrenal glands: Unremarkable. Kidneys: The unenhanced kidneys are atrophic and without hydronephrosis. No renal calculi are clearly identified. There are numerous renovascular calcifications. There is no evidence of contour deforming renal mass lesion. Abdominal vasculature: There is advanced atherosclerotic calcification of the abdominal aorta. An infrarenal abdominal aortic aneurysm measures 5.6 x 5.6 cm (AP x transverse). The aneurysm sac extends 7.5 cm in craniocaudal length. Bowel: There is evidence of previous gastric surgery. No bowel obstruction is seen. Enteric contrast reaches the rectum. There is moderate colonic diverticulosis without CT evidence of acute diverticulitis. Mild wall thickening is suggested in the left colon involving the mid to distal descending and proximal sigmoid. There is only minimal pericolonic inflammation. The appendix is well-visualized and normal. Peritoneum: There is no intraperitoneal free air or abdominal ascites. Lymphadenopathy: None. Pelvic viscera: The prostate gland is heterogeneous. The bladder and seminal vesicles are normal as imaged. There are bilateral fat-containing inguinal hernias. Skeletal structures: The skeletal structures are osteopenic. Moderate lumbosacral spondylosis is observed. No lytic or blastic lesions are seen. IMPRESSION: 1. Findings suggest a mild nonspecific colitis of the left colon. This could be on an infectious, inflammatory, or ischemic basis and clinical correlation will be required. 2. There is a 5.6 x 5.6 cm infrarenal abdominal aortic aneurysm as detailed above. 3. Moderate colonic diverticulosis without CT evidence of acute diverticulitis. 4. Additional findings as above. Hospital Course (1) Rectal bleeding: Rectal bleeding, likely secondary to Diverticular Bleed: Pt is 89 y/o M with PMH DM II, HTN, dyslipidemia, CAD s/p PTCA in 1996, CKD III, gastric ulcer s/p partial gastrectomy, AAA, anxiety, depression, PAD, GERD presented to ER with complaint of rectal bleeding started this morning. Denies fever/chills, N/V/D/C, abdominal pain, CP, SOB, dizziness, syncope. History colonoscopy in 2006: Polyps, diverticulosis In ER patient afebrile, vitals stable with pulse 78, BP: 168/81 H/H: 11.9/36. (Baseline Hgb: 11.6 on 05/02/2020), PLT:240, normal coags KUB:No evidence for bowel obstruction. CT Abdomen/Pelvis: 1. Findings suggest a mild nonspecific colitis of the left colon. This could be on an infectious, inflammatory, or ischemic basis and clinical correlation will be required. 2. There is a 5.6 x 5.6 cm infrarenal abdominal aortic aneurysm as detailed above. 3. Moderate colonic diverticulosis without CT evidence of acute diverticulitis.] 4. Additional findings as above. Hg 11.9 -->10.5--> 11.2 no recurrence of hematochezia since admission s/p EGD: unrevealing s/p Colonoscopy: (+) Diverticulosis per GI, rectal bleeding likely secondary to Diverticular bleed may resume Aspirin 81mg po daily repeat CBC on ff up with PCP next week Mildly Elevated troponin: - Troponin: 0.09. EKG sinus rhythm without acute ST changes. No CP, SOB - trop 0.09 to 0.2 - likely Demand Ischemia secondary to Above - no cardiac symptoms - [employer] Dr. Sandoval consulted no further interventions at this time Episode of Atrial Fibrillation - noted in telemetry- 1 hour duration, associated with palpitations - likely from missing AM dose of Metoprolol continue usual Metoprolol XL and ASA per Dr. Sandoval ff up and monitor as outpatient Abdominal Aortic Aneurysm CT abd/pelvis: 5.6 x 5.6 cm infrarenal abdominal aortic aneurysm on Aspirin and Lipitor monitor and follow up as outpatient Diabetes mellitus, type II: A1c: 7.4 on 05/18/2020 resume usual DM meds CAD (coronary artery disease), S/P stent in 1996 -History echo 2017: EF: 55-59%, grade 1 diastolic dysfunction, mild aortic valve sclerosis - continue Aspirin, Lipitor, Metoprolol HTN (hypertension) - stable - Continue metoprolol succinate and Amlodipine CKD (chronic kidney disease), stage III: -stable GERD (gastroesophageal reflux disease): History of partial gastrectomy: - H/O gastric ulcer s/p partial gastrectomy in 1959's continue usual PPI Anxiety: - continue Escitalopram, Buspirone Disposition d/c home ff up with PCP 07/17/2020 plan of care discussed with patient in detail all questions answered he is understanding, agreeable, comfortable with the plan of care Total Time Total Time Spent Total Time Spent (In Minutes): 45 minutes Discharge Plan Discharge Items Patient Disposition: Home - Self-Care Reason For Visit: RECTAL BLEEDING Discharge Diagnosis: BLEEDING FROM RECTUM, LIKELY SECONDARY TO DIVERTICULOSIS Condition on Discharge: Good Activity: Resume your previous activity Activity Comment: GRADUALLY TOLERATED Lifting: Wait until after follow-up appointment Exercise/Sports: Wait until after follow-up appointment Driving/Machine Use: NO DRIVING UNTIL RE-EVALUATED AND ALLOWED BY PRIMARY CARE PHYSICIAN Non-emergency contact: Primary Care Provider Call non-emergency contact if: you have any medication questions, your symptoms worsen, your pain is not controlled, your pain is worsening, your pain is unusual for you, your pain is concerning for you and you have a fever Follow-up/Referrals: Ganesh Livingston DO [Primary Care Provider] - 07/17/20 11:00 am (Date & Time 07/17/2020 11:00 AM Provider Ganesh Livingston DO [facility] ) Diet: Heart Healthy Add Attending Provider Instructions: ALWAYS TAKE ASPIRIN WITH FOOD/FULL STOMACH TO AVOID ULCERS. INCREASE FIBER IN YOUR DIET. EAT MORE FRUITS, VEGETABLES, OATMEAL. CHECK YOUR STOOLS EVERY DAY. CALL YOUR DOCTOR IMMEDIATELY IF HAVE BLACK OR RED/BLOODY STOOLS. CALL YOUR DOCTOR OR RETURN TO THE ER IMMEDIATELY IF WITH WORSENING OF SYMPTOMS, INCLUDING BLACK OR RED/BLOODY STOOLS, ABDOMINAL PAIN, NAUSEA/VOMITING, SHORTNESS OF BREATH, WEAKNESS, CHEST PAIN, HEART RACING, DIZZINESS/LIGHTHEADEDNESS. FOLLOW UP WITH YOUR PRIMARY CARE PHYSICIAN ON Friday AT 11:00AM. Pending Studies at Discharge: Yes Studies:: REPEAT BLOOD WORK (COMPLETE BLOOD COUNT) ON FOLLOW UP WITH YOUR [facility] CARE PHYSICIAN NEXT WEEK Stand-Alone Forms: [facility], Smoking Cessation Medications and DC Order Prescriptions: Continued hydrochlorothiazide 12.5 mg capsule 12.5 mg PO QAM RF: 0 amlodipine 5 mg tablet 5 mg PO DAILY RF: 0 buspirone 10 mg tablet 10 mg PO BID RF: 0 escitalopram oxalate 10 mg tablet 10 mg PO DAILY RF: 0 glipizide 10 mg tablet extended release 24hr 10 mg PO BID RF: 0 omeprazole 40 mg capsule,delayed release(DR/EC) 40 mg PO DAILY RF: 0 rosuvastatin 10 mg tablet 10 mg PO DAILY RF: 0 tamsulosin 0.4 mg capsule 0.4 mg PO DAILY RF: 0 Tradjenta 5 mg tablet 5 mg PO DAILY RF: 0 furosemide 40 mg tablet 40 mg PO DAILY Qty: 0 RF: 0 aspirin 81 mg Tablet,Delayed Release (Dr/Ec) 81 mg PO HS Qty: 0 RF: 0 metoprolol succinate [Toprol XL] 25 mg tablet extended release 24 hr 12.5 mg PO QAM RF: 0 calcitriol [Rocaltrol] 0.25 mcg capsule 0.25 mg PO MOWEFR@0800 RF: 0 Discharge Orders: Discharge Order (Routine); Ordered 07/13/20 Ordered By: Neville Lima Admission Data Admit Date/Time: 07/11/20 11:18 Attending Provider: Neville Lima Admit Provider: Cedric Scott Primary Care Provider: Ganesh Livingston Other Providers: Cedric Scott ; Ayaan Tompkins James J Other Interventions: Discharge Summary Assessment (RN) Last Done: 07/13/20 15:27
--- NOTE | 2020-07-13 19:01 | Electrocardiogram Report ---
Test Reason : Blood Pressure : / mmHG Vent. Rate : 069 BPM Atrial Rate : 069 BPM P-R Int : 198 ms QRS Dur : 080 ms QT Int : 398 ms P-R-T Axes : 052 045 060 degrees QTc Int : 426 ms Normal sinus rhythm Normal ECG When compared with ECG of 12-JUL-2020 07:16, No significant change was found Confirmed by Talha Lynch [id number] on 07/13/2020 7:01:25 PM Referred By: REFERRED SELF Confirmed By:David Lynch
[2020-07-13] MEDS ORDERED: ASPIRIN 81 MG ECTAB PO SCH (21:00)
== END 2020-07-13 16:16 | disposition home or self-care (01) ==
LOC: ED 08:24 → 2N 11:18 → SUATTDRO 11:18 → INTOOBSV 11:18 → 2N 11:50

== ENCOUNTER 2020-07-21 01:06 | Inpatient (IN) ==
[2020-07-21 02:40] LABS: Basophils # (auto) 0.03 K/uL (0-0.2); Basophils % (auto) 0.2 %; Eosinophils # (auto) 0.09 K/uL (0-0.5); Eosinophils % (auto) 0.6 %; Hematocrit (blood only) 32.8 % (42-52); Hemoglobin 10.9 g/dL (14.0-18.0); Immature Granulocytes # (auto) 0.06 K/uL (0.00-0.02); Immature Granulocytes % (auto) 0.4 %; Lymphocytes # (auto) 0.81 K/uL (1.2-3.4); Lymphocytes % (auto) 5.3 %; Mean Corpuscular Hemoglobin 31.4 pg (25-34); Mean Corpuscular Hgb Conc 33.2 g/dL (32-36); Mean Corpuscular Volume 94.5 fL (80-100); Mean Platelet Volume 9.5 fL (7.4-10.4); Monocytes # (auto) 0.94 K/uL (0.11-0.59); Monocytes % (auto) 6.1 %; Neutrophils # (auto) 13.46 K/uL (1.4-6.5); Neutrophils % (auto) 87.4 %; Platelet Count 260 K/uL (130-400); RDW Coefficient of Variation 14.2 % (11.5-14.5); RDW Standard Deviation 48.6 fL (36.4-46.3); Red Blood Count 3.47 M/uL (4.7-6.1); White Blood Count 15.39 K/uL (4.8-10.8)
[2020-07-21 03:00] LABS: Albumin Level 3.3 gm/dl (3.4-5.0); BUN Creatinine Ratio 17.8 (10-20); Calcium 8.8 mg/dl (8.5-10.1); Creatinine Clr Calc Pharmacy 17.9 ml/min; Est GFR (African American) 27.1; Est GFR (Non-African American) 23.4; Magnesium 1.6 mg/dl (1.8-2.4); Potassium 4.3 mmol/L (3.5-5.1)
--- NOTE | 2020-07-21 03:05 | Emergency Department Note ---
Impression & Plan Hypoxia, Weakness ED Provider Note NAME: BLAKE MIR AGE: 89 SEX: M ARRIVES VIA: Walk-In INFORMANT: Patient his printing pressman ED PROVIDER(S): Maureen Riddle DO CHIEF COMPLAINT: Feeling off balance PLAN: Disposition: Admitted to the [facility]ist Condition: Good MEDICAL DECISION MAKING: This is an 89-year-old male patient who presents to the emergency department because he was having difficulty walking from the bedroom to the bathroom and then into the living room. The patient is feeling off balance and weak. While here in the emergency department, the patient's O2 saturation was in the mid 80s without supplemental oxygen. When the patient ambulated, he did not feel quite as off balance or dizzy but he did feel somewhat short of breath. Initially, the patient did not want admission to the hospital but he did finally agree. [facility] for [facility] management. Triage Nursing notes reviewed and agree them. Additional history obtained from the patient's printing pressman who is at the bedside Prior medical records reviewed Vital Signs: reviewed and remarkable for hypoxia Differential diagnosis: Dehydration, electrolyte abnormality, vertigo, anemia, UTI, PE, CHF ER treatment provided: Supplemental oxygen Diagnostics interpreted by me: ECG: Normal sinus rhythm at a rate of 82; no ischemia or ectopy noted. There is no ST segment elevation Cardiac Monitoring: Normal sinus rhythm at a rate of 76 Laboratory studies: See below Imaging studies: Chest x-ray: No evidence of pleural effusions or significant congestive heart failure HPI: 89/M arrives for evaluation of feeling off balance. The patient states that he feels off balance since eating supper this evening. He was unable to get up from his bed and get to the bathroom or get out to the couch. The patient went to the chiropractor this afternoon and wonders if this had something to do with it. His printing pressman states that he was unable to get himself prepared for bed. She had to help him get his jeans down. He seemed somewhat out of it as she describes it. ROS: See above HPI for pertinent positives & negatives. A total of 10 systems reviewed and were otherwise negative. PAST MEDICAL HISTORY:See Below PAST SURGICAL HISTORY:See Below FAMILY HISTORY:See Below SOCIAL HISTORY:See Below HOME MEDICATIONS:See list ALLERGIES:None VITALS:See Below PHYSICAL EXAMINATION: HEENT: Head - normocephalic and atraumatic Pupils are equal, round, and reactive to light. Extraocular eye muscles are intact, and sclera are anicteric. Nose - moist nasal mucosa without discharge. Mouth - moist buccal mucosa. Oropharynx is nonerythematous and there is no tonsillar exudate or edema noted. Neck: Supple; no JVD or cervical lymphadenopathy Heart: Regular rate and rhythm. There is a normal S1 and S2 with no murmurs, clicks, or gallops appreciated. Lungs: Clear to auscultation bilaterally with no wheezes, rales, or rhonchi. Abdomen: Soft, completely nontender, nondistended, with good bowel sounds. There are no palpable pulsatile masses or hepatosplenomegaly. There is no guarding, rigidity, or rebound noted. Extremities: 3+ pitting edema in both lower extremities. There are 2 areas of erythema noted to the anterior aspects of the lower extremities which appear to be chronic. Skin: warm and dry with good turgor and no rashes. ED COURSE: Times/Reassessments: 0125: The patient was evaluated in room B6. A complete history and physical was performed. Previous electronic medical records were reviewed. An order was placed for continuous cardiac monitoring. The patient was in a normal sinus rhythm at a rate of 74. Laboratory studies were drawn as above. A twelve-lead EKG was obtained as described above. The patient had a portable chest x-ray performed. 0335: Patient was reevaluated at this time and supplemental O2 from nasal cannula had to be increased to an oxygen mask as his O2 saturations were only maintained at 89 to 90% on the nasal cannula. I had a conversation with the patient and his printing pressman about his low oxygen saturations. He does have a history of smoking but quit in the 1970s. He explains that his PCP increased his dose of Lasix 5 days ago where he was taking double dose for only 3 days. 0355: I reevaluated the patient again as I discussed admission with the patient because of the hypoxia and initially he refused stating that he wanted to leave. I recommended the patient consider admission. Nursing staff assisted the patient up out of the bed and his printing pressman noted that he seemed somewhat short of breath with just slight ambulation and was able to convince him to stay here in the hospital. [facility] and [facility] for further management. I have personally spent greater than 30 minutes of critical care time in the direct management of this patient. This includes bedside care, interpretation of diagnostic studies, and testing, discussion with consultants, patient, and fa raquel members, and other required patient management activities. This 30 minutes is in excess of all separately billable procedures. Maureen Riddle DO Past Med/Surg History Medical History (Updated 07/21/20 @ 06:32 by Maureen Riddle DO) Abdominal aortic aneurysm Anemia Anxiety CAD (coronary artery disease) CKD (chronic kidney disease), stage III Diabetes Diabetes mellitus, type II Gastric ulcer GERD (gastroesophageal reflux disease) HTN (hypertension) Hyperlipidemia PAD (peripheral artery disease) Surgical History History of biopsy History of hernia repair History of partial gastrectomy Stented coronary artery Family History Other Diabetes Social History Smoking Status: Never smoker Second Hand Exposure: No; Hx Alcohol Use: Yes Hx Substance Use: No Preferred Language: Kyrgyz Communication Ability: Effective Transplant Surgeon Required: No Beliefs That Will Affect Care: None Current Living Situation: Alone Feels Safe at Home: Yes Allergies Allergies Allergy/AdvReac Type Severity Reaction Status Date / Time No Known Allergies Allergy Unknown Verified 07/21/20 02:04 Home Meds Home Medications Medication Instructions Recorded Confirmed calcitriol [Rocaltrol] 0.25 mg PO 3XWK 08/01/18 07/21/20 metoprolol succinate [Toprol XL] 12.5 mg PO QAM 08/01/18 07/21/20 Tradjenta 5 mg PO DAILY 07/11/20 07/21/20 amlodipine 5 mg PO DAILY 07/11/20 07/21/20 buspirone 10 mg PO BID 07/11/20 07/21/20 escitalopram oxalate 10 mg PO DAILY 07/11/20 07/21/20 glipizide 10 mg PO BID 07/11/20 07/21/20 hydrochlorothiazide 12.5 mg PO QAM 07/11/20 07/21/20 omeprazole 40 mg PO DAILY 09/08/20 09/18/20 rosuvastatin 10 mg PO DAILY 07/11/20 07/21/20 tamsulosin 0.4 mg PO DAILY 07/11/20 07/21/20 Previous Rx's Medication Instructions Recorded aspirin 81 mg PO HS #0 tab 07/13/20 furosemide 40 mg PO DAILY #0 tab 07/13/20 Results & Data (ED) Vital Signs Vital Signs - 24 hr 07/21/20 01:11 07/21/20 01:58 07/21/20 02:00 Temperature 37.6 C H Temperature Source Oral Pulse Rate 106 H 86 89 Pulse Rate from SpO2 Sensor 86 88 Pulse Rhythm Regular Pulse Strength Normal Respiratory Rate 22 26 H 23 Respiratory Effort / Characteristics Non-Labored Spontaneous Respiratory Depth Normal Respiratory Pattern Regular Blood Pressure 117/67 132/75 140/85 Blood Pressure Mean 83 106 111 Blood Pressure Position Sitting Pulse Oximetry 90 86 L 87 L Oxygen Delivery Method Room Air Oxygen Flow Rate Sepsis Recent Fever Within 48 Hours No Sepsis New/Unexplained Change in Mental Status No Sepsis Action Taken by Nursing No Action Required 07/21/20 02:12 07/21/20 02:30 07/21/20 02:31 Temperature Temperature Source Pulse Rate 86 84 Pulse Rate from SpO2 Sensor 86 86 Pulse Rhythm Pulse Strength Respiratory Rate 26 H 28 H Respiratory Effort / Characteristics Respiratory Depth Respiratory Pattern Blood Pressure 137/68 Blood Pressure Mean 91 Blood Pressure Position Pulse Oximetry 91 91 95 Oxygen Delivery Method Nasal Cannula Nasal Cannula Oxymask Oxygen Flow Rate 3 4 4 Sepsis Recent Fever Within 48 Hours Sepsis New/Unexplained Change in Mental Status Sepsis Action Taken by Nursing 07/21/20 03:01 07/21/20 03:30 07/21/20 03:43 Temperature Temperature Source Pulse Rate 78 79 86 Pulse Rate from SpO2 Sensor 79 77 86 Pulse Rhythm Pulse Strength Respiratory Rate 27 H 24 24 Respiratory Effort / Characteristics Respiratory Depth Respiratory Pattern Blood Pressure 126/66 127/61 141/70 H Blood Pressure Mean 92 74 91 Blood Pressure Position Pulse Oximetry 96 97 94 Oxygen Delivery Method Oxymask Oxymask Oxymask Oxygen Flow Rate 4 4 4 Sepsis Recent Fever Within 48 Hours Sepsis New/Unexplained Change in Mental Status Sepsis Action Taken by Nursing 07/21/20 04:00 07/21/20 04:30 07/21/20 05:00 Temperature Temperature Source Pulse Rate 81 77 80 Pulse Rate from SpO2 Sensor 82 76 80 Pulse Rhythm Pulse Strength Respiratory Rate 25 H 26 H 26 H Respiratory Effort / Characteristics Respiratory Depth Respiratory Pattern Blood Pressure 131/71 120/63 130/66 Blood Pressure Mean 88 90 98 Blood Pressure Position Pulse Oximetry 95 96 98 Oxygen Delivery Method Oxymask Oxymask Oxymask Oxygen Flow Rate 4 4 3 Sepsis Recent Fever Within 48 Hours Sepsis New/Unexplained Change in Mental Status Sepsis Action Taken by Nursing 07/21/20 05:30 07/21/20 05:31 07/21/20 06:01 Temperature Temperature Source Pulse Rate 75 78 74 Pulse Rate from SpO2 Sensor 75 77 74 Pulse Rhythm Pulse Strength Respiratory Rate 26 H 26 H 24 Respiratory Effort / Characteristics Respiratory Depth Respiratory Pattern Blood Pressure 122/62 128/61 Blood Pressure Mean 88 79 Blood Pressure Position Pulse Oximetry 99 97 95 Oxygen Delivery Method Oxymask Oxymask Oxymask Oxygen Flow Rate 4 4 4 Sepsis Recent Fever Within 48 Hours Sepsis New/Unexplained Change in Mental Status Sepsis Action Taken by Nursing Laboratory Data Result diagrams: 07/21/20 02:27 07/21/20 02:27 Lab Results 07/21/20 07/21/20 07/21/20 Range/Units 02:27 02:27 03:10 WBC 15.39 H (4.8-10.8) K/uL RBC 3.47 L (4.7-6.1) M/uL Hgb 10.9 L (14.0-18.0) g/dL Hct 32.8 L (42-52) % MCV 94.5 (80-100) fL MCH 31.4 (25-34) pg MCHC 33.2 (32-36) g/dL RDW Std Deviation 48.6 H (36.4-46.3) fL RDW Coeff of Vikas 14.2 (11.5-14.5) % Plt Count 260 (130-400) K/uL MPV 9.5 (7.4-10.4) fL Immature Gran % (Auto) 0.4 % Neut % (Auto) 87.4 % Lymph % (Auto) 5.3 % [place] % (Auto) 6.1 % Eos % (Auto) 0.6 % Baso % (Auto) 0.2 % Neut # (Auto) 13.46 H (1.4-6.5) K/uL Lymph # (Auto) 0.81 L (1.2-3.4) K/uL [place] # (Auto) 0.94 H (0.11-0.59) K/uL Eos # (Auto) 0.09 (0-0.5) K/uL Baso # (Auto) 0.03 (0-0.2) K/uL Immature Gran # (Auto) 0.06 H (0.00-0.02) K/uL Sodium 138 (136-145) mmol/L Potassium 4.3 (3.5-5.1) mmol/L Chloride 104 (98-107) mmol/L Carbon Dioxide 26 (21-32) mmol/L Anion Gap 8.0 (3-11) BUN 42 H (7-18) mg/dl Creatinine 2.37 H (0.6-1.4) mg/dl Est Cr Clr Drug Dosing 17.9 ml/min Est GFR ( Amer) 27.1 Est GFR (Non-Af Amer) 23.4 BUN/Creatinine Ratio 17.8 (10-20) Glucose 186 H (70-99) mg/dl Calcium 8.8 (8.5-10.1) mg/dl Magnesium 1.6 L (1.8-2.4) mg/dl Total Bilirubin 0.4 (0.2-1) mg/dl AST 13 L (15-37) U/L ALT 20 (12-78) U/L Alkaline Phosphatase 56 (45-117) U/L Troponin I 0.116 H* (0-0.045) ng/ml Total Protein 8.7 H (6.4-8.2) gm/dl Albumin 3.3 L (3.4-5.0) gm/dl Globulin 5.4 H (2.5-4.0) gm/dl Albumin/Globulin Ratio 0.6 L (0.9-2) TSH 1.130 (0.300-4.500) uIu/ml Urine Color Yellow Urine Appearance Clear (Clear) Urine pH 5.0 (4.5-7.5) Ur Specific [place] 1.017 (1.000-1.030) Urine Protein 1+ H (Negative) Urine Glucose (UA) Negative (Negative) Urine Ketones Negative (Negative) Urine Blood Negative (Negative) Urine Nitrite Negative (Negative) Urine Bilirubin Negative (Negative) Urine Urobilinogen Negative (Negative) Ur Leukocyte Esterase Negative (Negative) Urine WBC (Auto) 1-5 (0-5) /hpf Urine RBC (Auto) 0-4 (0-4) /hpf U Hyaline Cast (Auto) 0 (0-5) /lpf U Epithel Cells (Auto) 0-5 (0-5) /lpf Urine Bacteria (Auto) Negative (Negative) COVID-19 Eval Order 07/21/20 Range/Units 05:30 WBC (4.8-10.8) K/uL RBC (4.7-6.1) M/uL Hgb (14.0-18.0) g/dL Hct (42-52) % MCV (80-100) fL MCH (25-34) pg MCHC (32-36) g/dL RDW Std Deviation (36.4-46.3) fL RDW Coeff of Vikas (11.5-14.5) % Plt Count (130-400) K/uL MPV (7.4-10.4) fL Immature Gran % (Auto) % Neut % (Auto) % Lymph % (Auto) % [place] % (Auto) % Eos % (Auto) % Baso % (Auto) % Neut # (Auto) (1.4-6.5) K/uL Lymph # (Auto) (1.2-3.4) K/uL [place] # (Auto) (0.11-0.59) K/uL Eos # (Auto) (0-0.5) K/uL Baso # (Auto) (0-0.2) K/uL Immature Gran # (Auto) (0.00-0.02) K/uL Sodium (136-145) mmol/L Potassium (3.5-5.1) mmol/L Chloride (98-107) mmol/L Carbon Dioxide (21-32) mmol/L Anion Gap (3-11) BUN (7-18) mg/dl Creatinine (0.6-1.4) mg/dl Est Cr Clr Drug Dosing ml/min Est GFR ( Amer) Est GFR (Non-Af Amer) BUN/Creatinine Ratio (10-20) Glucose (70-99) mg/dl Calcium (8.5-10.1) mg/dl Magnesium (1.8-2.4) mg/dl Total Bilirubin (0.2-1) mg/dl AST (15-37) U/L ALT (12-78) U/L Alkaline Phosphatase (45-117) U/L Troponin I (0-0.045) ng/ml Total Protein (6.4-8.2) gm/dl Albumin (3.4-5.0) gm/dl Globulin (2.5-4.0) gm/dl Albumin/Globulin Ratio (0.9-2) TSH (0.300-4.500) uIu/ml Urine Color Urine Appearance (Clear) Urine pH (4.5-7.5) Ur Specific [place] (1.000-1.030) Urine Protein (Negative) Urine Glucose (UA) (Negative) Urine Ketones (Negative) Urine Blood (Negative) Urine Nitrite (Negative) Urine Bilirubin (Negative) Urine Urobilinogen (Negative) Ur Leukocyte Esterase (Negative) Urine WBC (Auto) (0-5) /hpf Urine RBC (Auto) (0-4) /hpf U Hyaline Cast (Auto) (0-5) /lpf U Epithel Cells (Auto) (0-5) /lpf Urine Bacteria (Auto) (Negative) COVID-19 Eval Order Covid19 Done at [facility] Discharge Plan Visit Data Chief Complaint: Weakness Stated Complaint: WEAKNESS ED Provider: Maureen Riddle Discharge Problem: Hypoxia, Weakness Forms Stand Alone Forms: My [facility] Prescriptions Prescriptions: No Action hydrochlorothiazide 12.5 mg capsule 12.5 mg PO QAM RF: 0 amlodipine 5 mg tablet 5 mg PO DAILY RF: 0 buspirone 10 mg tablet 10 mg PO BID RF: 0 escitalopram oxalate 10 mg tablet 10 mg PO DAILY RF: 0 glipizide 10 mg tablet extended release 24hr 10 mg PO BID RF: 0 omeprazole 40 mg capsule,delayed release(DR/EC) 40 mg PO DAILY RF: 0 rosuvastatin 10 mg tablet 10 mg PO DAILY RF: 0 tamsulosin 0.4 mg capsule 0.4 mg PO DAILY RF: 0 Tradjenta 5 mg tablet 5 mg PO DAILY RF: 0 furosemide 40 mg tablet 40 mg PO DAILY Qty: 0 RF: 0 aspirin 81 mg Tablet,Delayed Release (Dr/Ec) 81 mg PO HS Qty: 0 RF: 0 metoprolol succinate [Toprol XL] 25 mg tablet extended release 24 hr 12.5 mg PO QAM RF: 0 calcitriol [Rocaltrol] 0.25 mcg capsule 0.25 mg PO 3XWK RF: 0
[2020-07-21 03:14] LABS: Albumin Globulin Ratio 0.6 (0.9-2); Bilirubin,Total 0.4 mg/dl (0.2-1); Globulin 5.4 gm/dl (2.5-4.0); Thyroid Stimulating Hormone 1.13 uIu/ml (0.300-4.500); Total Protein 8.7 gm/dl (6.4-8.2); Troponin I 0.116 ng/ml (0-0.045)
[2020-07-21 03:26] LABS: Appearance Urine Clear (Clear); Bacteria Urine Automated Negative (Negative); Bilirubin Urine Negative (Negative); Blood Urine Negative (Negative); Cast Urine Automated 0 /lpf (0-5); Color Urine Yellow; Epithelial Cell Urine Auto 0-5 /lpf (0-5); Glucose Urine UA Negative (Negative); Ketones Urine Negative (Negative); Leukocyte Esterase Urine Negative (Negative); Nitrite Urine Negative (Negative); Protein Urine 1+ (Negative); RBC Urine Automated 0-4 /hpf (0-4); Specific Gravity Urine 1.017 (1.000-1.030); Urobilinogen Urine Negative (Negative)
--- NOTE | 2020-07-21 07:29 | XRay Report ---
XR chest 1V portable CLINICAL HISTORY: Shortness of breath COMPARISON STUDY: 07/11/2020 FINDINGS: The heart is mildly enlarged. There is mild mediastinal prominence. There is biapical fibro nodular scarring with hilar retraction. There is stable interstitial thickening. There is no evidence for acute congestive failure. There are no pleural effusions. There is no lobar consolidation.[ IMPRESSION: Cardiomegaly and areas of chronic interstitial thickening and chronic biapical scarring. No acute findings. ACT 112: Negative or not required by law. Electronically signed by: Bladimir Vigil M.D. 07/21/2020 7:28 AM
[2020-07-21] MEDS ORDERED: ACETAMINOPHEN 325 MG TAB PO PRN (07:33)
[2020-07-21] MEDS ORDERED: ONDANSETRON INJ 2 MG/ML 2 ML VIAL IV PRN (07:33)
[2020-07-21] MEDS ORDERED: NITROGLYCERIN SL 0.4 MG/TAB TAB SL PRN (07:33)
--- NOTE | 2020-07-21 07:40 | CT Scan Report ---
CT chest wo con CLINICAL HISTORY: pneumonia COMPARISON STUDY: Chest x-ray dated 07/21/2020 CT DOSE: 378.71 mGycm TECHNIQUE: CT of the thorax was performed from the thoracic inlet to the lung bases. Images are revi ewed in the axial, sagittal, and coronal planes. IV contrast was not administered for this examinatio n. A dose lowering technique was utilized adhering to the principles of ALARA. FINDINGS: Thyroid: Imaged portions of the thyroid gland are normal in appearance. Thoracic aorta: The thoracic aorta is normal in course and caliber, noting standard 3 vessel arch mary ildefonso. Heart: There are extensive coronary artery calcifications. There is no pericardial effusion Lungs and pleural spaces: There is pulmonary emphysema. There is biapical pleural and parenchymal sca rring with apical pleural calcification. There are subpleural blebs. There is lower lobe bronchial wa ll thickening with areas of mucous plugging. There is dependent atelectasis. There is no lobar consol idation. Mediastinum: There are mildly enlarged subcarinal lymph nodes. Sharmila: There is no evidence of pathologic hilar adenopathy given the limitations of a noncontrast stud y Axilla: There is no evidence of pathologic axillary lymphadenopathy Upper abdomen: There is hepatic steatosis Skeletal structures: There is an old sternal fracture. IMPRESSION: 1. Evidence for chronic lung disease with biapical pleural and parenchymal scarring 2. Lower lobe bronchial wall thickening and mucous plugging with basilar atelectasis 3. No evidence of lobar consolidation 4. Mild subcarinal adenopathy 5. Extensive coronary artery calcifications ACT 112: Negative or not required by law. Electronically signed by: Bladimir Vigil M.D. 07/21/2020 7:39 AM
[2020-07-21] MEDS ORDERED: GLUCOSE 10 TABS/TUBE PO PRN (08:00)
[2020-07-21] MEDS ORDERED: GLUCAGON FOR INJ 1 MG VIAL SQ PRN (08:00)
[2020-07-21] MEDS ORDERED: DEXTROSE 50% 50 ML SYRINGE IV PRN (08:00)
[2020-07-21] MEDS ORDERED: CARBOHYDRATES FOR HYPOGLYCEMIA PO PRN (08:00)
[2020-07-21] MEDS ORDERED: GLUCOSE 40% GEL 15 GM TUBE PO PRN (08:00)
--- NOTE | 2020-07-21 08:12 | History and Physical Report ---
DATE OF ADMISSION: 07/21/2020 CHIEF COMPLAINT: Weakness. HISTORY OF PRESENT ILLNESS: This is an 89-year-old male with past medical history significant for type 2 diabetes, hypertension, hyperlipidemia, CAD status post PTCA in 1996, chronic kidney disease stage III, history of gastric ulcer, status post partial gastrectomy, abdominal aortic aneurysm, recent imaging study shows about 5.6 x 5.6 infrarenal abdominal aortic aneurysm, anxiety, depression, PAD, GERD, who was recently admitted in the hospital for rectal bleed, status post EGD, which was unrevealing, status post colonoscopy which showed diverticulosis, rectal bleed thought to be secondary to diverticular bleed. At the time of discharge, he resumed aspirin. During the hospitalization he was also seen by cardiology for mild troponin elevation, thought to be from demand ischemia. During that hospitalization, he had an episode of atrial fibrillation. Seen by cardiology and was recommended to continue his Toprol-XL and aspirin.Comes today because of weakness. The patient is having difficulty ambulating today from bedroom to bathroom and to the living room. He was feeling weak and tired and seemed to be off balance. He lives with a market president and he seemed very weak, which prompted her to bring him into the ER. In the ER, he also had mild low-grade temperature and also he was hypoxic saturating 86% to 87% on room air and requiring oxygen. He has been taking Lasix for a long time and recently Lasix was increased to 40 mg, but there was no significant dehydration. His white count was elevated at 15.3. Creatinine was 2.3, baseline around 2. Magnesium is 1.6, troponin 0.11, his troponins are chronically elevated. Urinalysis was negative. Chest x-ray, no obvious infiltrates. The patient denies any ongoing cough. He says he coughs once in a while because of his sinuses for a long time. Denies any chest pain. Denies any headache. No dizziness, no blurred vision, no earache, no runny nose, no sore throat. Denies any loss of sense of smell or taste. Appetite is okay. No dysphagia, no nausea, no abdominal pain. He moved his bowels and they are normal. Normal bladder movements. No burning micturition. He has chronic red spots in both the the shins. As per market president, she attributes it to chronic trauma. 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 Currently, he is on 4 liters oxygen, and saturating 97%. Somewhat hard of hearing, market president helped with the history, but patient seems comfortable. [employer] Supervisor says that they play regularly bowling and they play regularly with 15 people and no one is sick. Denies any exposure to any COVID patients. ALLERGIES: No known drug allergies. PAST MEDICAL HISTORY: As mentioned above. PAST SURGICAL HISTORY: Colonoscopy, coronary artery dilatation, EGDs, removal of the cataract lens, Billroth II for peptic ulcer disease, repair of sliding hernia, sigmoidoscopy with biopsy. MEDICATIONS: The patient is on amlodipine 5 mg p.o. daily, aspirin 81 mg p.o. daily, buspirone 10 mg p.o. b.i.d., calcitriol 0.25 mcg p.o. 3 times a week, Lexapro 10 mg p.o. daily, Lasix 40 mg p.o. daily, glipizide 10 mg p.o. b.i.d., hydrochlorothiazide 12.5 mg p.o. a.m., metoprolol succinate 12.5 mg p.o. a.m., omeprazole 40 mg p.o. daily, atorvastatin 40 mg p.o. daily, Flomax 0.4 mg p.o. daily, Tradjenta 5 mg p.o. daily. FAMILY HISTORY: Significant for father of [place] at age 65 and father had diabetes. Sister has diabetes. Mother at the age of 95. SOCIAL HISTORY: Currently lives with a market president. Former smoker, quit in 1977, smoked 1 pack a day for 25 years. Alcohol rare. No drug use. REVIEW OF SYSTEMS: As per HPI. Rest of the review of systems are negative. The patient is hard to hear. PHYSICAL EXAMINATION: VITAL SIGNS: T-max 37.6, pulse 78, respiratory rate in the 20s, blood pressure 122/62, oxygen 97% on 4 liters OxyMask, was 86% on room air. HEENT: Pupils equal, round, and reactive to light. Extraocular muscles intact. Oral mucosa moist. NECK: No JVD, no neck masses seen. CARDIOVASCULAR: S1, S2 heard. Regular rate and rhythm, no murmur, no gallop. RESPIRATORY SYSTEM: Normal AP diameter. No accessory muscle use. Bilateral mild rhonchi heard, no crackles. ABDOMEN: Soft, bowel sounds present, nontender. No distention. No guarding, no rigidity. CENTRAL NERVOUS SYSTEM: Cranial nerves II-XII grossly intact. Speech clear. Extraocular muscles intact. No facial droop. Moves extremities. EXTREMITIES: Bilateral lower extremity mild pedal edema present and red spots in the bilateral shins seen. LABORATORY DATA: WBC 15.3, hemoglobin 10.9, hematocrit 32.8, platelets 260. Sodium 138, potassium 4.3, chloride 104, bicarbonate 26, BUN 42, creatinine 2.3, serum glucose 186, calcium 8.8, magnesium 1.6, total bilirubin 0.4, AST 13, ALT 20, alkaline phosphatase 56, troponin 1 of 0.11. TSH 1.1. Urinalysis negative. COVID-19 pending. IMAGING DATA: Chest x-ray, no obvious infiltrates seen. EKG: Normal sinus rhythm at the rate of 82, nonspecific ST abnormalities seen. ASSESSMENT AND PLAN: This is an 89-year-old male who presents with weakness and found to be hypoxic. 1. Hypoxia and weakness, mild temperature spike, leukocytosis. UA is negative. Chest x-ray, no obvious infiltrates. Requiring oxygen, saturating at 97% on 4 liters, was 86% on room air. The patient was recently in the hospital for rectal bleed, but his hemoglobin is stable at 10.9. A COVID test done prior to the procedure for the last admission was negative on 07/12/2020.But the patient goes for bowling. Could be atypical pneumonia. We will check for COVID. We will empirically treat with Rocephin and doxycycline. If COVID test comes negative, we may do CT scan of the chest for a better picture to rule out any underlying pneumonia. We will follow the blood cultures and closely monitor in the tele floor.Also remote hx of smoking. Quit in 1977 but smoked 1 pack for 25ys as per epic. 2. Acute kidney injury on chronic kidney disease stage III, baseline creatinine around 2, presently with creatinine of 2.3. We will hold his Lasix and hydrochlorothiazide. We will follow the repeat labs. 3. Recent rectal bleed thought to be from diverticular bleed. Hemoglobin is 10.9. We will follow the repeat labs. 4. Abdominal aortic aneurysm, recent CAT scan shows 5.6 x 5.6 infrarenal abdominal aortic aneurysm, on aspirin and Lipitor. Needs followup. 5. Mild elevation of troponin, seems to be chronic. EKG with no acute ST changes. Will follow the serial enzymes. Seen by cardiology last admission. 5. Diabetes. Hold his home medication. Placed him on insulin sliding scale. Follow the blood sugars. 6. History of coronary artery disease status post stent in 1996. On aspirin, Lipitor and metoprolol. Will monitor. 7. Hypertension, on Toprol-XL and amlodipine. Will monitor the blood pressure. 8. Gastroesophageal reflux disease, history of partial gastrectomy in . Continue his omeprazole. 9. History of anxiety and depression. Continue his Lexapro and buspirone. 10. Deep venous thrombosis prophylaxis, sequential compression devices for now. 11. Disposition: Closely monitor in the tele floor. Code status, level 1 full code only if there is chance of recovery as per my discussion with the patient. PT and OT prior to discharge. Social service to help with discharge planning. Addendum: Covid negative. Ct chest shows chronic lung disease and lower lobe bronchial wall thickening and mucus plugging.Hx of smoking in the past.Rhonchi on exam. Mostly Copd ex. will add Nebs ATC and prednisone 40mg daily and monitor. MTDD
--- NOTE | 2020-07-21 08:41 | Electrocardiogram Report ---
Test Reason : Blood Pressure : / mmHG Vent. Rate : 082 BPM Atrial Rate : 082 BPM P-R Int : 172 ms QRS Dur : 078 ms QT Int : 390 ms P-R-T Axes : 051 052 081 degrees QTc Int : 455 ms Normal sinus rhythm Nonspecific ST abnormality Anterolateral leads Abnormal ECG When compared with ECG of 13-JUL-2020 09:08, Nonspecific ST abnormality now present Anterolateral leads Confirmed by Mehdi Duong ([id number]) on 07/21/2020 8:41:29 AM Referred By: REFERRED SELF Confirmed By:Mehdi Duong
[2020-07-21] MEDS: cefTRIAXone SODIUM 1,000 MG in DEXTROSE 5% 50 ML IV SCH (08:42)
[2020-07-21] MEDS: DOXYCYCLINE HYCLATE 100 MG in DEXTROSE 5% 100 ML IV SCH ×2 (08:43→19:50)
[2020-07-21] MEDS: MAGNESIUM SULFATE / D5W 1 GM/100 ML BAG IV SCH ×2 (08:43→11:03)
[2020-07-21] MEDS: ESCITALOPRAM OXALATE 10 MG TAB PO SCH (08:44)
[2020-07-21] MEDS: CALCITRIOL 0.25 MCG CAPSULE PO SCH (08:44)
[2020-07-21] MEDS: AMLODIPINE BESYLATE 5 MG TAB PO SCH (08:46)
[2020-07-21] MEDS: TAMSULOSIN HCL 0.4 MG CAP PO SCH (08:46)
[2020-07-21] MEDS: METOPROLOL SUCC 25MG EXT REL TAB PO SCH (08:46)
[2020-07-21] MEDS: ROSUVASTATIN CALCIUM 10 MG TAB PO SCH (08:46)
[2020-07-21] MEDS: PANTOprazole 40 MG TAB PO SCH (08:46)
[2020-07-21] MEDS: INSULIN ASPART 100 UNITS/ML 3 ML PEN SC SCH ×4 (08:47→20:55)
[2020-07-21] MEDS: INSULIN GLARGINE SOLOSTAR 100 UNITS/ML 3 ML PEN SC SCH (08:48)
[2020-07-21] MEDS: SODIUM CHLORIDE 0.9% 1000ML 1,000 ML IV SCH ×2 (11:10→19:49)
[2020-07-21] MEDS: predniSONE 20 MG TAB PO SCH (11:45)
[2020-07-21] MEDS ORDERED: XOPENEX/ATROVENT 0.63mg/0.5MG NEB COMBO NEB SCH (13:00)
[2020-07-21] MEDS: IPRATROPIUM BROMIDE NEB SOLN 0.02% 2.5 ML VIAL INH SCH ×2 (13:07→19:24)
[2020-07-21] MEDS: LEVALBUTEROL HCL 0.63 MG/3 ML NEB NEB SCH ×2 (13:07→19:24)
[2020-07-21] MEDS: ASPIRIN 81 MG ECTAB PO SCH (19:51)
[2020-07-22] MEDS: LEVALBUTEROL HCL 0.63 MG/3 ML NEB NEB SCH ×4 (00:29→19:17)
[2020-07-22] MEDS: IPRATROPIUM BROMIDE NEB SOLN 0.02% 2.5 ML VIAL INH SCH ×4 (00:29→19:17)
[2020-07-22 05:26] LABS: Basophils # (auto) 0.01 K/uL (0-0.2); Basophils % (auto) 0.1 %; Hematocrit (blood only) 30.7 % (42-52); Hemoglobin 9.7 g/dL (14.0-18.0); Immature Granulocytes # (auto) 0.03 K/uL (0.00-0.02); Immature Granulocytes % (auto) 0.3 %; Lymphocytes # (auto) 1.08 K/uL (1.2-3.4); Lymphocytes % (auto) 10.5 %; Mean Corpuscular Hgb Conc 31.6 g/dL (32-36); Mean Platelet Volume 9.3 fL (7.4-10.4); Monocytes % (auto) 5.8 %; Neutrophils # (auto) 8.58 K/uL (1.4-6.5); Neutrophils % (auto) 83.3 %; Platelet Count 244 K/uL (130-400); RDW Coefficient of Variation 13.9 % (11.5-14.5); RDW Standard Deviation 48.4 fL (36.4-46.3); Red Blood Count 3.23 M/uL (4.7-6.1)
[2020-07-22 05:53] LABS: BUN Creatinine Ratio 19.7 (10-20); Calcium 8.3 mg/dl (8.5-10.1); Creatinine Clr Calc Pharmacy 21.8 ml/min; Est GFR (African American) 34.3; Est GFR (Non-African American) 29.6; Magnesium 2.3 mg/dl (1.8-2.4); Potassium 4.3 mmol/L (3.5-5.1)
[2020-07-22] MEDS: SODIUM CHLORIDE 0.9% 1000ML 1,000 ML IV SCH (06:02)
[2020-07-22 06:56] LABS: Estimated Average Glucose 171 mg/dl; Hemoglobin A1C 7.6 % (4.5-5.6)
[2020-07-22] MEDS: cefTRIAXone SODIUM 1,000 MG in DEXTROSE 5% 50 ML IV SCH (07:25)
[2020-07-22] MEDS: INSULIN ASPART 100 UNITS/ML 3 ML PEN SC SCH ×4 (07:41→21:13)
[2020-07-22] MEDS: TAMSULOSIN HCL 0.4 MG CAP PO SCH (08:20)
[2020-07-22] MEDS: AMLODIPINE BESYLATE 5 MG TAB PO SCH (08:20)
[2020-07-22] MEDS: METOPROLOL SUCC 25MG EXT REL TAB PO SCH (08:20)
[2020-07-22] MEDS: ROSUVASTATIN CALCIUM 10 MG TAB PO SCH (08:20)
[2020-07-22] MEDS: ESCITALOPRAM OXALATE 10 MG TAB PO SCH (08:20)
[2020-07-22] MEDS: predniSONE 20 MG TAB PO SCH (08:20)
[2020-07-22] MEDS: PANTOprazole 40 MG TAB PO SCH (08:20)
[2020-07-22] MEDS: INSULIN GLARGINE SOLOSTAR 100 UNITS/ML 3 ML PEN SC SCH (08:21)
[2020-07-22] MEDS: DOXYCYCLINE HYCLATE 100 MG in DEXTROSE 5% 100 ML IV SCH ×2 (08:21→19:59)
--- NOTE | 2020-07-22 10:43 | Hospitalist Progress Note ---
Date of Service July 22, 2020 Assessment & Plan (1) Weakness: Presented with generalized weakness and inability to ambulate normally Contributed by dehydration We will get PT and OT evaluation (2) Hypoxia: Noted to be hypoxic at presentation CT evidence of lower lobe bronchial wall thickening and mucous plugging with basilar atelectasis Likely has tracheobronchitis Has been getting intravenous ceftriaxone and oral doxycycline for now Will change antibiotic to oral doxycycline on discharge Saturation seems to be maintained with 2 L nasal cannula oxygen (3) Acute renal failure superimposed on stage 3 chronic kidney disease: Has CKD 3 Admitted with acute on chronic renal failure with increasing creatinine and BUN Creatinine improved from 2.37 on admission to 1.95 this morning-07/22/2020 Would advise more fluid intake and avoid giving any intravenous fluids Monitor PRP (4) Diabetes mellitus, type II: Continue SSI (5) Elevated troponin I level: Troponin seems to be chronically elevated Serial troponin seems to be improving 1.240> 0.782 Doubt any ACS (6) HTN (hypertension): Controlled (7) CAD (coronary artery disease): No acute symptoms History of abdominal aortic aneurysm Infrarenal with dimension 5.65.6 Will control blood pressure and have an outpatient appointment with vascular surgery on discharge DVT prophylaxis Will add heparin subcu Admission and Anticipated Discharge Date Admission Date: July 21, 2020 Subjective 07/22/2020 The patient was seen and examined in telemetry unit He was admitted with weakness, ambulatory dysfunction and noted to be hypoxic at presentation Has been feeling a lot better since admission and wants to go home Denies any significant symptoms this morning Review of Systems Review of Systems: All systems reviewed and are unremarkable except as noted below Constitutional: + weakness Respiratory: no cough and no dyspnea Cardiovascular: no chest pain, no palpitations and no edema Musculoskeletal: no joint pain Physical Exam Physical Exam: Lying in bed comfortably Constitutional: well developed and well nourished; no acute distress and not ill appearing Eyes: PERRL, conjunctivae normal, anicteric sclerae ENMT: external ear and nose normal, oropharynx normal Neck: trachea midline, no thyromegaly Respiratory: normal respiratory effort; no respiratory distress Auscultation: + diminished lung sounds (Left basal crackles more than the right) Cardiovascular: Rate/Rhythm: regular rate and regular rhythm Heart Sounds: no murmur Gastrointestinal (Abdomen): Inspection/Auscultation: abdomen normal to inspection and normal bowel sounds; abdomen not distended Percussion/Palpation: abdomen soft; abdomen nontender Musculoskeletal: No acute arthritis involving any joints Neurologic: moves all extremities; no focal motor deficits Alert, awake and oriented x3 Lymphatic: no cervical or axillary lymphadenopathy Results & Data Results & Data ([facility]) Vital Signs (Past 12 Hours) Vital Signs Temp Pulse Resp BP Pulse Ox 07/22/20 07:25 36.7 C 70 20 123/66 91 07/22/20 07:17 70 16 91 07/22/20 03:41 36.7 C 64 18 114/54 L 95 07/22/20 00:30 69 17 90 07/21/20 23:34 36.9 C 70 18 123/57 L 95 Laboratory Results Short CBC 07/22/20 Range/Units 05:05 WBC 10.30 (4.8-10.8) K/uL Hgb 9.7 L (14.0-18.0) g/dL Hct 30.7 L (42-52) % Plt Count 244 (130-400) K/uL BMP 07/22/20 05:05 Sodium 139 Potassium 4.3 Chloride 108 H Carbon Dioxide 26 BUN 38 H Creatinine 1.95 H D Glucose 162 H Calcium 8.3 L Cardiac Enzymes 07/21/20 07/21/20 Range/Units 13:14 19:48 Troponin I 1.240 H* 0.782 H* (0-0.045) ng/ml Medications Administered Current Inpatient Medications Acetaminophen (Acetaminophen 325 Mg Tab) 650 mg PO Q4H PRN PRN Reason: Pain or Fever Stop: 08/20/20 07:32 Amlodipine Besylate (Amlodipine Besylate 5 Mg Tab) 5 mg PO DAILY VERNELL Stop: 08/20/20 08:59 Last Admin: 07/22/20 08:20 Dose: 5 mg Documented by: Aspirin (Aspirin 81 Mg Ectab) 81 mg PO HS VERNELL Stop: 08/20/20 20:59 Last Admin: 07/21/20 19:51 Dose: 81 mg Documented by: Buspirone HCl (Buspirone 5 Mg Tab) 10 mg PO BID VERNELL Stop: 08/20/20 08:59 Last Admin: 07/22/20 08:21 Dose: 10 mg Documented by: Calcitriol (Calcitriol 0.25 Mcg Capsule) 0.25 mcg PO MoWeFr@0800 VERNELL Stop: 08/20/20 07:59 Last Admin: 07/21/20 08:44 Dose: 0.25 mcg Documented by: Dextrose (Dextrose 50% 50 Ml Syringe) 25 - 50 ml IV UD PRN; Protocol PRN Reason: Hypoglycemia Protocol Stop: 08/20/20 07:59 Escitalopram Oxalate (Escitalopram Oxalate 10 Mg Tab) 10 mg PO DAILY VERNELL Stop: 08/20/20 08:59 Last Admin: 07/22/20 08:20 Dose: 10 mg Documented by: Glucagon (Glucagon For Inj 1 Mg Vial) 1 mg SQ UD PRN; Protocol PRN Reason: Hypoglycemia Protocol Stop: 08/20/20 07:59 Glucose (Glucose 40% Gel 15 Gm Tube) 15 - 30 gm PO UD PRN; Protocol PRN Reason: Hypoglycemia Protocol Stop: 08/20/20 07:59 Glucose (Glucose 10 Tabs/Tube) 4 - 8 tabs PO UD PRN; Protocol PRN Reason: Hypoglycemia Protocol Stop: 08/20/20 07:59 Ceftriaxone Sodium 1,000 mg/ (Dextrose) 50 mls @ 100 mls/hr IV Q24H [facility]; Protocol Stop: 07/28/20 07:59 Last Infusion: 07/22/20 08:29 Dose: Infused Documented by: Doxycycline Hyclate 100 mg/ (Dextrose) 110 mls @ 50 mls/hr IV Q12H VERNELL Stop: 07/28/20 07:59 Last Admin: 07/22/20 08:21 Dose: 50 mls/hr Documented by: Sodium Chloride (Nss 1000ml) 1,000 mls @ 100 mls/hr IV .Q10H [facility] Stop: 07/22/20 16:29 Last Admin: 07/22/20 06:02 Dose: 100 mls/hr Documented by: Insulin Aspart (Insulin Aspart 100 Units/Ml 3 Ml Pen) 0 units [place] ACHS VERNELL Stop: 08/20/20 07:32 Last Admin: 07/22/20 07:41 Dose: 8 units Documented by: Insulin Glargine (Insulin Glargine Solostar 100 Units/Ml 3 Ml Pen) 5 units SC DAILY [facility] Stop: 08/20/20 08:59 Last Admin: 07/22/20 08:21 Dose: 5 units Documented by: Ipratropium [place] (Ipratropium [place] Neb Soln 0.02% 2.5 Ml Vial) 0.5 mg INH Q6R VERNELL Stop: 08/20/20 12:59 Last Admin: 07/22/20 07:17 Dose: 0.5 mg Documented by: Levalbuterol HCl (Levalbuterol Hcl 0.63 Mg/3 Ml Neb) 0.63 mg NEB Q6R VERNELL Stop: 08/20/20 12:59 Last Admin: 07/22/20 07:17 Dose: 0.63 mg Documented by: Metoprolol Succinate (Metoprolol Succ 25mg Ext Rel Tab) 12.5 mg PO QAM VERNELL Stop: 08/20/20 08:59 Last Admin: 07/22/20 08:20 Dose: 12.5 mg Documented by: Miscellaneous (Carbohydrates For Hypoglycemia ) 15 - 30 gm PO UD PRN PRN Reason: Hypoglycemia Treatment Stop: 08/20/20 07:59 Nitroglycerin (Nitroglycerin Sl 0.4 Mg/Tab Tab) 0.4 mg SL UD PRN PRN Reason: Chest Pain Stop: 08/20/20 07:32 Ondansetron HCl (Ondansetron Inj 2 Mg/Ml 2 Ml Vial) 4 mg IV Q6H PRN PRN Reason: Nausea Stop: 08/20/20 07:32 Pantoprazole Sodium (Pantoprazole 40 Mg Tab) 40 mg PO DAILY VERNELL Stop: 08/20/20 08:59 Last Admin: 07/22/20 08:20 Dose: 40 mg Documented by: Prednisone (Prednisone 20 Mg Tab) 40 mg PO DAILY VERNELL Stop: 08/20/20 08:59 Last Admin: 07/22/20 08:20 Dose: 40 mg Documented by: Rosuvastatin Calcium (Rosuvastatin Calcium 10 Mg Tab) 10 mg PO DAILY VERNELL Stop: 08/20/20 08:59 Last Admin: 07/22/20 08:20 Dose: 10 mg Documented by: Tamsulosin HCl (Tamsulosin Hcl 0.4 Mg Cap) 0.4 mg PO DAILY VERNELL Stop: 08/20/20 08:59 Last Admin: 07/22/20 08:20 Dose: 0.4 mg Documented by:
[2020-07-22] MEDS: ASPIRIN 81 MG ECTAB PO SCH (19:59)
[2020-07-22] MEDS: HEPARIN SOD 5,000 UNIT/0.5 ML VIAL SQ SCH (19:59)
[2020-07-23] MEDS: IPRATROPIUM BROMIDE NEB SOLN 0.02% 2.5 ML VIAL INH SCH ×2 (01:07→07:07)
[2020-07-23] MEDS: LEVALBUTEROL HCL 0.63 MG/3 ML NEB NEB SCH ×2 (01:07→07:07)
[2020-07-23 06:35] LABS: Basophils # (auto) 0.01 K/uL (0-0.2); Basophils % (auto) 0.1 %; Eosinophils # (auto) 0.02 K/uL (0-0.5); Eosinophils % (auto) 0.1 %; Hematocrit (blood only) 28.9 % (42-52); Hemoglobin 9.6 g/dL (14.0-18.0); Immature Granulocytes # (auto) 0.06 K/uL (0.00-0.02); Immature Granulocytes % (auto) 0.4 %; Lymphocytes # (auto) 1.84 K/uL (1.2-3.4); Mean Corpuscular Hemoglobin 31.6 pg (25-34); Mean Corpuscular Hgb Conc 33.2 g/dL (32-36); Mean Corpuscular Volume 95.1 fL (80-100); Mean Platelet Volume 9.9 fL (7.4-10.4); Monocytes # (auto) 0.93 K/uL (0.11-0.59); Monocytes % (auto) 6.6 %; Neutrophils # (auto) 11.32 K/uL (1.4-6.5); Neutrophils % (auto) 79.8 %; Platelet Count 270 K/uL (130-400); RDW Coefficient of Variation 14.1 % (11.5-14.5); RDW Standard Deviation 48.6 fL (36.4-46.3); Red Blood Count 3.04 M/uL (4.7-6.1); White Blood Count 14.18 K/uL (4.8-10.8)
[2020-07-23 07:15] LABS: BUN Creatinine Ratio 21.1 (10-20); Calcium 8.4 mg/dl (8.5-10.1); Creatinine Clr Calc Pharmacy 24.8 ml/min; Est GFR (African American) 38.9; Est GFR (Non-African American) 33.5; Potassium 3.8 mmol/L (3.5-5.1)
[2020-07-23 07:16] LABS: Phosphorus 2.9 mg/dl (2.5-4.9)
[2020-07-23] MEDS: INSULIN ASPART 100 UNITS/ML 3 ML PEN SC SCH ×4 (07:40→20:23)
[2020-07-23] MEDS: cefTRIAXone SODIUM 1,000 MG in DEXTROSE 5% 50 ML IV SCH (08:09)
[2020-07-23] MEDS: TAMSULOSIN HCL 0.4 MG CAP PO SCH (08:10)
[2020-07-23] MEDS: predniSONE 20 MG TAB PO SCH (08:10)
[2020-07-23] MEDS: METOPROLOL SUCC 25MG EXT REL TAB PO SCH (08:10)
[2020-07-23] MEDS: AMLODIPINE BESYLATE 5 MG TAB PO SCH (08:10)
[2020-07-23] MEDS: PANTOprazole 40 MG TAB PO SCH (08:10)
[2020-07-23] MEDS: ESCITALOPRAM OXALATE 10 MG TAB PO SCH (08:10)
[2020-07-23] MEDS: ROSUVASTATIN CALCIUM 10 MG TAB PO SCH (08:10)
[2020-07-23] MEDS: HEPARIN SOD 5,000 UNIT/0.5 ML VIAL SQ SCH ×2 (08:11→20:23)
[2020-07-23] MEDS: INSULIN GLARGINE SOLOSTAR 100 UNITS/ML 3 ML PEN SC SCH (08:50)
[2020-07-23] MEDS: DOXYCYCLINE HYCLATE 100 MG in DEXTROSE 5% 100 ML IV SCH (09:34)
--- NOTE | 2020-07-23 10:42 | Hospitalist Progress Note ---
Date of Service July 23, 2020 Assessment & Plan (1) Weakness: Presented with generalized weakness and inability to ambulate normally Contributed by dehydration We will get PT and OT evaluation (2) Hypoxia: Noted to be hypoxic at presentation CT evidence of lower lobe bronchial wall thickening and mucous plugging with basilar atelectasis Likely has tracheobronchitis Has been getting intravenous ceftriaxone and oral doxycycline for now Will change antibiotic to oral doxycycline on discharge Requiring more oxygen to maintain saturation We will discontinue intravenous ceftriaxone and continue with oral doxycycline We will provide spirometer Repeat chest x-ray tomorrow (3) Acute renal failure superimposed on stage 3 chronic kidney disease: Has CKD 3 Admitted with acute on chronic renal failure with increasing creatinine and BUN Creatinine improved from 2.37 on admission to 1.95 this morning-07/22/2020 Would advise more fluid intake and avoid giving any intravenous fluids Monitor PRP-creatinine has been improving (4) Diabetes mellitus, type II: Continue SSI (5) Elevated troponin I level: Troponin seems to be chronically elevated Serial troponin seems to be improving 1.240> 0.782 Doubt any ACS (6) HTN (hypertension): Controlled (7) CAD (coronary artery disease): No acute symptoms History of abdominal aortic aneurysm Infrarenal with dimension 5.65.6 Will control blood pressure and have an outpatient appointment with vascular surgery on discharge DVT prophylaxis Will add heparin subcu We will get PT and OT evaluation prior to discharge Likely to be going home tomorrow Admission and Anticipated Discharge Date Admission Date: July 21, 2020 Subjective 07/22/2020 The patient was seen and examined in telemetry unit He was admitted with weakness, ambulatory dysfunction and noted to be hypoxic at presentation Has been feeling a lot better since admission and wants to go home Denies any significant symptoms this morning 07/23/2020 The patient was seen and examined in telemetry unit He has been feeling a lot better and wants to go home but still requires more oxygen to maintain saturation He has not been out of bed yet Denies any significant symptoms Review of Systems Review of Systems: All systems reviewed and are unremarkable except as noted below Constitutional: + weakness Respiratory: + cough and + chest congestion Physical Exam Physical Exam: Lying in bed comfortably Constitutional: well developed and well nourished; no acute distress and not ill appearing Eyes: PERRL, conjunctivae normal, anicteric sclerae ENMT: external ear and nose normal, oropharynx normal Neck: trachea midline, no thyromegaly Respiratory: normal respiratory effort; no respiratory distress Auscultation: + diminished lung sounds (Left basal crackles more than the right) Cardiovascular: Rate/Rhythm: regular rate and regular rhythm Heart Sounds: no murmur Gastrointestinal (Abdomen): Inspection/Auscultation: abdomen normal to inspection and normal bowel sounds; abdomen not distended Percussion/Palpation: abdomen soft; abdomen nontender Musculoskeletal: No acute arthritis involving any joints Neurologic: moves all extremities; no focal motor deficits Alert, awake and oriented x3. Moderately deaf. Lymphatic: no cervical or axillary lymphadenopathy Results & Data Results & Data ([facility]) Vital Signs (Past 12 Hours) Vital Signs Temp Pulse Resp BP BP Pulse Ox 07/23/20 07:07 70 16 90 07/23/20 07:00 36.8 C 69 20 133/67 91 07/23/20 04:23 36.8 C 62 16 140/62 94 07/23/20 01:07 71 16 90 07/22/20 23:37 36.6 C 70 22 129/70 91 Laboratory Results Short CBC 07/23/20 Range/Units 05:35 WBC 14.18 H (4.8-10.8) K/uL Hgb 9.6 L (14.0-18.0) g/dL Hct 28.9 L (42-52) % Plt Count 270 (130-400) K/uL BMP 07/23/20 05:35 Sodium 141 Potassium 3.8 Chloride 109 H Carbon Dioxide 24 BUN 37 H Creatinine 1.76 H Glucose 131 H Calcium 8.4 L Medications Administered Current Inpatient Medications Acetaminophen (Acetaminophen 325 Mg Tab) 650 mg PO Q4H PRN PRN Reason: Pain or Fever Stop: 08/20/20 07:32 Amlodipine Besylate (Amlodipine Besylate 5 Mg Tab) 5 mg PO DAILY VERNELL Stop: 08/20/20 08:59 Last Admin: 07/23/20 08:10 Dose: 5 mg Documented by: Aspirin (Aspirin 81 Mg Ectab) 81 mg PO HS VERNELL Stop: 08/20/20 20:59 Last Admin: 07/22/20 19:59 Dose: 81 mg Documented by: Buspirone HCl (Buspirone 5 Mg Tab) 10 mg PO BID VERNELL Stop: 08/20/20 08:59 Last Admin: 07/23/20 08:09 Dose: 10 mg Documented by: Calcitriol (Calcitriol 0.25 Mcg Capsule) 0.25 mcg PO MoWeFr@0800 VERNELL Stop: 08/20/20 07:59 Last Admin: 07/21/20 08:44 Dose: 0.25 mcg Documented by: Dextrose (Dextrose 50% 50 Ml Syringe) 25 - 50 ml IV UD PRN; Protocol PRN Reason: Hypoglycemia Protocol Stop: 08/20/20 07:59 Escitalopram Oxalate (Escitalopram Oxalate 10 Mg Tab) 10 mg PO DAILY VERNELL Stop: 08/20/20 08:59 Last Admin: 07/23/20 08:10 Dose: 10 mg Documented by: Glucagon (Glucagon For Inj 1 Mg Vial) 1 mg SQ UD PRN; Protocol PRN Reason: Hypoglycemia Protocol Stop: 08/20/20 07:59 Glucose (Glucose 40% Gel 15 Gm Tube) 15 - 30 gm PO UD PRN; Protocol PRN Reason: Hypoglycemia Protocol Stop: 08/20/20 07:59 Glucose (Glucose 10 Tabs/Tube) 4 - 8 tabs PO UD PRN; Protocol PRN Reason: Hypoglycemia Protocol Stop: 08/20/20 07:59 Heparin Sodium (Porcine) (Heparin Sod 5,000 Unit/0.5 Ml Vial) 5,000 units SQ Q12 VERNELL Stop: 08/21/20 20:59 Last Admin: 07/23/20 08:11 Dose: 5,000 units Documented by: Ceftriaxone Sodium 1,000 mg/ (Dextrose) 50 mls @ 100 mls/hr IV Q24H [facility]; Protocol Stop: 07/28/20 07:59 Last Infusion: 07/23/20 09:33 Dose: Infused Documented by: Doxycycline Hyclate 100 mg/ (Dextrose) 110 mls @ 50 mls/hr IV Q12H [facility] Stop: 07/28/20 07:59 Last Admin: 07/23/20 09:34 Dose: 50 mls/hr Documented by: Insulin Aspart (Insulin Aspart 100 Units/Ml 3 Ml Pen) 0 units SC ACHS VERNELL Stop: 08/20/20 07:32 Last Admin: 07/23/20 07:40 Dose: 7 units Documented by: Insulin Glargine (Insulin Glargine Solostar 100 Units/Ml 3 Ml Pen) 5 units SC DAILY [facility] Stop: 08/20/20 08:59 Last Admin: 07/23/20 08:50 Dose: 5 units Documented by: Ipratropium [place] (Ipratropium [place] Neb Soln 0.02% 2.5 Ml Vial) 0.5 mg INH Q6R [facility] Stop: 08/20/20 12:59 Last Admin: 07/23/20 07:07 Dose: 0.5 mg Documented by: Levalbuterol HCl (Levalbuterol Hcl 0.63 Mg/3 Ml Neb) 0.63 mg NEB Q6R VERNELL Stop: 08/20/20 12:59 Last Admin: 07/23/20 07:07 Dose: 0.63 mg Documented by: Metoprolol Succinate (Metoprolol Succ 25mg Ext Rel Tab) 12.5 mg PO QAM VERNELL Stop: 08/20/20 08:59 Last Admin: 07/23/20 08:10 Dose: 12.5 mg Documented by: Miscellaneous (Carbohydrates For Hypoglycemia ) 15 - 30 gm PO UD PRN PRN Reason: Hypoglycemia Treatment Stop: 08/20/20 07:59 Nitroglycerin (Nitroglycerin Sl 0.4 Mg/Tab Tab) 0.4 mg SL UD PRN PRN Reason: Chest Pain Stop: 08/20/20 07:32 Ondansetron HCl (Ondansetron Inj 2 Mg/Ml 2 Ml Vial) 4 mg IV Q6H PRN PRN Reason: Nausea Stop: 08/20/20 07:32 Pantoprazole Sodium (Pantoprazole 40 Mg Tab) 40 mg PO DAILY VERNELL Stop: 08/20/20 08:59 Last Admin: 07/23/20 08:10 Dose: 40 mg Documented by: Prednisone (Prednisone 20 Mg Tab) 40 mg PO DAILY VERNELL Stop: 08/20/20 08:59 Last Admin: 07/23/20 08:10 Dose: 40 mg Documented by: Rosuvastatin Calcium (Rosuvastatin Calcium 10 Mg Tab) 10 mg PO DAILY VERNELL Stop: 08/20/20 08:59 Last Admin: 07/23/20 08:10 Dose: 10 mg Documented by: Tamsulosin HCl (Tamsulosin Hcl 0.4 Mg Cap) 0.4 mg PO DAILY VERNELL Stop: 08/20/20 08:59 Last Admin: 07/23/20 08:10 Dose: 0.4 mg Documented by:
[2020-07-23] MEDS ORDERED: IPRATROPIUM BROMIDE NEB SOLN 0.02% 2.5 ML VIAL INH PRN (12:13)
[2020-07-23] MEDS ORDERED: LEVALBUTEROL HCL 0.63 MG/3 ML NEB NEB PRN (12:13)
[2020-07-23] MEDS: DOXYCYCLINE HYCLATE 100 MG CAP PO SCH (20:22)
[2020-07-23] MEDS: ASPIRIN 81 MG ECTAB PO SCH (20:22)
[2020-07-24] MEDS: predniSONE 20 MG TAB PO SCH (07:55)
[2020-07-24] MEDS: INSULIN ASPART 100 UNITS/ML 3 ML PEN SC SCH ×2 (07:55→11:54)
[2020-07-24] MEDS: ESCITALOPRAM OXALATE 10 MG TAB PO SCH (07:55)
[2020-07-24] MEDS: TAMSULOSIN HCL 0.4 MG CAP PO SCH (07:55)
[2020-07-24] MEDS: DOXYCYCLINE HYCLATE 100 MG CAP PO SCH (07:56)
[2020-07-24] MEDS: AMLODIPINE BESYLATE 5 MG TAB PO SCH (07:56)
[2020-07-24] MEDS: METOPROLOL SUCC 25MG EXT REL TAB PO SCH (07:56)
[2020-07-24] MEDS: CALCITRIOL 0.25 MCG CAPSULE PO SCH (07:56)
[2020-07-24] MEDS: PANTOprazole 40 MG TAB PO SCH (07:57)
[2020-07-24] MEDS: HEPARIN SOD 5,000 UNIT/0.5 ML VIAL SQ SCH (07:57)
[2020-07-24] MEDS: ROSUVASTATIN CALCIUM 10 MG TAB PO SCH (07:57)
[2020-07-24] MEDS: INSULIN GLARGINE SOLOSTAR 100 UNITS/ML 3 ML PEN SC SCH (08:00)
[2020-07-24] MEDS ORDERED: FUROSEMIDE 40 MG in SYRINGE 0 ML IV ONE (09:30)
--- NOTE | 2020-07-24 10:13 | XRay Report ---
XR chest 2V PA/lateral CLINICAL HISTORY: Congestive failure COMPARISON STUDY: 07/21/2020 FINDINGS: The heart is mildly enlarged. There is a trace right pleural effusion. There is biapical sc arring. There is chronic interstitial thickening. Trace pleural effusions are suspected.[ IMPRESSION: 1. Chronic interstitial lung disease. 2. No evidence of acute parenchymal consolidation 3. Trace right pleural effusion ACT 112: Negative or not required by law. Electronically signed by: Bladimir Vigil M.D. 07/24/2020 10:12 AM
--- NOTE | 2020-07-24 11:24 | Hospitalist Progress Note ---
Date of Service July 24, 2020 Assessment & Plan (1) Weakness: Presented with generalized weakness and inability to ambulate normally Contributed by dehydration Appreciate physical therapy input and recommendation (2) Hypoxia: Noted to be hypoxic at presentation CT evidence of lower lobe bronchial wall thickening and mucous plugging with basilar atelectasis Likely has tracheobronchitis Has been getting intravenous ceftriaxone and oral doxycycline for now Will change antibiotic to oral doxycycline on discharge Requiring more oxygen to maintain saturation We will discontinue intravenous ceftriaxone and continue with oral doxycycline We will provide spirometer Repeat chest x-ray tomorrow-no evidence of CHF and/or pneumonia Received 1 dose of Lasix of 40 mg intravenously this morning We will get to do steps O2 saturation test before discharge this afternoon (3) Acute renal failure superimposed on stage 3 chronic kidney disease: Has CKD 3 Admitted with acute on chronic renal failure with increasing creatinine and BUN Creatinine improved from 2.37 on admission to 1.95 this morning-07/22/2020 Would advise more fluid intake and avoid giving any intravenous fluids Monitor PRP-creatinine has been improving Creatinine remains at 1.76 as of 07/23/2020 (4) Diabetes mellitus, type II: Continue SSI (5) Elevated troponin I level: Troponin seems to be chronically elevated Serial troponin seems to be improving 1.240> 0.782 Doubt any ACS (6) HTN (hypertension): Controlled (7) CAD (coronary artery disease): No acute symptoms History of abdominal aortic aneurysm Infrarenal with dimension 5.65.6 Will control blood pressure and have an outpatient appointment with vascular surgery on discharge Discussed with the patient will have outpatient follow-up DVT prophylaxis Will add heparin subcu We will get PT and OT evaluation prior to discharge Likely discharge this afternoon Admission and Anticipated Discharge Date Admission Date: July 21, 2020 Subjective 07/22/2020 The patient was seen and examined in telemetry unit He was admitted with weakness, ambulatory dysfunction and noted to be hypoxic at presentation Has been feeling a lot better since admission and wants to go home Denies any significant symptoms this morning 07/23/2020 The patient was seen and examined in telemetry unit He has been feeling a lot better and wants to go home but still requires more oxygen to maintain saturation He has not been out of bed yet Denies any significant symptoms 07/24/2020 Patient was seen and examined in telemetry unit He has been 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 but EKG remained in sinus rhythm without any evidence of PVCs Still has some congestion but denies any shortness of breath Review of Systems Review of Systems: All systems reviewed and are unremarkable except as noted below Constitutional: + weakness Respiratory: + cough and + chest congestion Physical Exam Physical Exam: Lying in bed comfortably Constitutional: well developed and well nourished; no acute distress and not ill appearing Eyes: PERRL, conjunctivae normal, anicteric sclerae ENMT: external ear and nose normal, oropharynx normal Neck: trachea midline, no thyromegaly Respiratory: normal respiratory effort; no respiratory distress Auscultation: + diminished lung sounds (Left basal crackles more than the right), + crackles and + wheezes (Bibasilar crackles) Cardiovascular: Rate/Rhythm: regular rate and regular rhythm Heart Sounds: no murmur Gastrointestinal (Abdomen): Inspection/Auscultation: abdomen normal to inspection and normal bowel sounds; abdomen not distended Percussion/Palpation: abdomen soft; abdomen nontender Musculoskeletal: No acute arthritis involving any joints Neurologic: moves all extremities; no focal motor deficits Lymphatic: no cervical or axillary lymphadenopathy Results & Data Results & Data ([facility]) Vital Signs (Past 12 Hours) Vital Signs Temp Pulse Pulse Resp BP Pulse Ox 07/24/20 08:41 70 07/24/20 07:36 36.8 C 73 18 165/74 H 93 07/24/20 03:33 37.2 C 73 18 148/69 H 95 07/23/20 23:48 36.9 C 68 18 150/63 H 95 Medications Administered Current Inpatient Medications Acetaminophen (Acetaminophen 325 Mg Tab) 650 mg PO Q4H PRN PRN Reason: Pain or Fever Stop: 08/20/20 07:32 Amlodipine Besylate (Amlodipine Besylate 5 Mg Tab) 5 mg PO DAILY VERNELL Stop: 08/20/20 08:59 Last Admin: 07/24/20 07:56 Dose: 5 mg Documented by: Aspirin (Aspirin 81 Mg Ectab) 81 mg PO HS VERNELL Stop: 08/20/20 20:59 Last Admin: 07/23/20 20:22 Dose: 81 mg Documented by: Buspirone HCl (Buspirone 5 Mg Tab) 10 mg PO BID VERNELL Stop: 08/20/20 08:59 Last Admin: 07/24/20 07:57 Dose: 10 mg Documented by: Calcitriol (Calcitriol 0.25 Mcg Capsule) 0.25 mcg PO MoWeFr@0800 VERNELL Stop: 08/20/20 07:59 Last Admin: 07/24/20 07:56 Dose: 0.25 mcg Documented by: Dextrose (Dextrose 50% 50 Ml Syringe) 25 - 50 ml IV UD PRN; Protocol PRN Reason: Hypoglycemia Protocol Stop: 08/20/20 07:59 Doxycycline Hyclate (Doxycycline Hyclate 100 Mg Cap) 100 mg PO BID VERNELL Stop: 07/28/20 20:59 Last Admin: 07/24/20 07:56 Dose: 100 mg Documented by: Escitalopram Oxalate (Escitalopram Oxalate 10 Mg Tab) 10 mg PO DAILY VERNELL Stop: 08/20/20 08:59 Last Admin: 07/24/20 07:55 Dose: 10 mg Documented by: Glucagon (Glucagon For Inj 1 Mg Vial) 1 mg SQ UD PRN; Protocol PRN Reason: Hypoglycemia Protocol Stop: 08/20/20 07:59 Glucose (Glucose 40% Gel 15 Gm Tube) 15 - 30 gm PO UD PRN; Protocol PRN Reason: Hypoglycemia Protocol Stop: 08/20/20 07:59 Glucose (Glucose 10 Tabs/Tube) 4 - 8 tabs PO UD PRN; Protocol PRN Reason: Hypoglycemia Protocol Stop: 08/20/20 07:59 Heparin Sodium (Porcine) (Heparin Sod 5,000 Unit/0.5 Ml Vial) 5,000 units SQ Q12 VERNELL Stop: 08/21/20 20:59 Last Admin: 07/24/20 07:57 Dose: 5,000 units Documented by: Insulin Aspart (Insulin Aspart 100 Units/Ml 3 Ml Pen) 0 units SC ACHS VERNELL Stop: 08/20/20 07:32 Last Admin: 07/24/20 07:55 Dose: 5 units Documented by: Insulin Glargine (Insulin Glargine Solostar 100 Units/Ml 3 Ml Pen) 5 units SC DAILY VERNELL Stop: 08/20/20 08:59 Last Admin: 07/24/20 08:00 Dose: 5 units Documented by: Ipratropium Suring (Ipratropium Suring Neb Soln 0.02% 2.5 Ml Vial) 0.5 mg INH Q6R PRN PRN Reason: Shortness Of Breath Or Wheezing Stop: 08/20/20 12:59 Levalbuterol HCl (Levalbuterol Hcl 0.63 Mg/3 Ml Neb) 0.63 mg NEB Q6R PRN PRN Reason: Shortness Of Breath Or Wheezing Stop: 08/20/20 12:59 Metoprolol Succinate (Metoprolol Succ 25mg Ext Rel Tab) 12.5 mg PO QAM VERNELL Stop: 08/20/20 08:59 Last Admin: 07/24/20 07:56 Dose: 12.5 mg Documented by: Miscellaneous (Carbohydrates For Hypoglycemia ) 15 - 30 gm PO UD PRN PRN Reason: Hypoglycemia Treatment Stop: 08/20/20 07:59 Nitroglycerin (Nitroglycerin Sl 0.4 Mg/Tab Tab) 0.4 mg SL UD PRN PRN Reason: Chest Pain Stop: 08/20/20 07:32 Ondansetron HCl (Ondansetron Inj 2 Mg/Ml 2 Ml Vial) 4 mg IV Q6H PRN PRN Reason: Nausea Stop: 08/20/20 07:32 Pantoprazole Sodium (Pantoprazole 40 Mg Tab) 40 mg PO DAILY VERNELL Stop: 08/20/20 08:59 Last Admin: 07/24/20 07:57 Dose: 40 mg Documented by: Prednisone (Prednisone 20 Mg Tab) 40 mg PO DAILY VERNELL Stop: 08/20/20 08:59 Last Admin: 07/24/20 07:55 Dose: 40 mg Documented by: Rosuvastatin Calcium (Rosuvastatin Calcium 10 Mg Tab) 10 mg PO DAILY VERNELL Stop: 08/20/20 08:59 Last Admin: 07/24/20 07:57 Dose: 10 mg Documented by: Tamsulosin HCl (Tamsulosin Hcl 0.4 Mg Cap) 0.4 mg PO DAILY VERNELL Stop: 08/20/20 08:59 Last Admin: 07/24/20 07:55 Dose: 0.4 mg Documented by:
--- NOTE | 2020-07-25 07:46 | Discharge Summary ---
Date of Service July 25, 2020 Admission HPI Per Admitting Provider DICTATED BY: Sidney Carranza MD DATE OF ADMISSION: 07/21/2020 CHIEF COMPLAINT: Weakness. HISTORY OF PRESENT ILLNESS: This is an 89-year-old male with past medical history significant for type 2 diabetes, hypertension, hyperlipidemia, CAD status post PTCA in 1996, chronic kidney disease stage III, history of gastric ulcer, status post partial gastrectomy, abdominal aortic aneurysm, recent imaging study shows about 5.6 x 5.6 infrarenal abdominal aortic aneurysm, anxiety, depression, PAD, GERD, who was recently admitted in the hospital for rectal bleed, status post EGD, which was unrevealing, status post colonoscopy which showed diverticulosis, rectal bleed thought to be secondary to diverticular bleed. At the time of discharge, he resumed aspirin. During the hospitalization he was also seen by cardiology for mild troponin elevation, thought to be from demand ischemia. During that hospitalization, he had an episode of atrial fibrillation. Seen by cardiology and was recommended to continue his Toprol-XL and aspirin.Comes today because of weakness. The patient is having difficulty ambulating today from bedroom to bathroom and to the living room. He was feeling weak and tired and seemed to be off balance. He lives with a director of leadership development and he seemed very weak, which prompted her to bring him into the ER. In the ER, he also had mild low-grade temperature and also he was hypoxic saturating 86% to 87% on room air and requiring oxygen. He has been taking Lasix for a long time and recently Lasix was increased to 40 mg, but there was no significant dehydration. His white count was elevated at 15.3. Creatinine was 2.3, baseline around 2. Magnesium is 1.6, troponin 0.11, his troponins are chronically elevated. Urinalysis was negative. Chest x-ray, no obvious infiltrates. The patient denies any ongoing cough. He says he coughs once in a while because of his sinuses for a long time. Denies any chest pain. Denies any headache. No dizziness, no blurred vision, no earache, no runny nose, no sore throat. Denies any loss of sense of smell or taste. Appetite is okay. No dysphagia, no nausea, no abdominal pain. He moved his bowels and they are normal. Normal bladder movements. No burning micturition. He has chronic red spots in both the the shins. As per director of leadership development, she attributes it to chronic trauma. 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 Currently, he is on 4 liters oxygen, and saturating 97%. Somewhat hard of hearing, director of leadership development helped with the history, but patient seems comfortable. 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 Denies any exposure to any COVID patients. Admission Exam Per Admitting Provider VITAL SIGNS: T-max 37.6, pulse 78, respiratory rate in the 20s, blood pressure 122/62, oxygen 97% on 4 liters OxyMask, was 86% on room air. HEENT: Pupils equal, round, and reactive to light. Extraocular muscles intact. Oral mucosa moist. NECK: No JVD, no neck masses seen. CARDIOVASCULAR: S1, S2 heard. Regular rate and rhythm, no murmur, no gallop. RESPIRATORY SYSTEM: Normal AP diameter. No accessory muscle use. Bilateral mild rhonchi heard, no crackles. ABDOMEN: Soft, bowel sounds present, nontender. No distention. No guarding, no rigidity. CENTRAL NERVOUS SYSTEM: Cranial nerves II-XII grossly intact. Speech clear. Extraocular muscles intact. No facial droop. Moves extremities. EXTREMITIES: Bilateral lower extremity mild pedal edema present and red spots in the bilateral shins seen. Principal Diagnosis Generalized weakness, transient hypoxemia secondary to tracheobronchitis, acute on chronic kidney disease, diabetes type 2 Discharge Exam Constitutional well developed and well nourished; no acute distress and not ill appearing Eyes PERRL, conjunctivae normal, anicteric sclerae ENMT external ear and nose normal, oropharynx normal Neck trachea midline, no thyromegaly Respiratory normal respiratory effort; no respiratory distress Auscultation: + diminished lung sounds (Left basal crackles more than the right), + crackles and + wheezes (Bibasilar crackles) Cardiovascular Rate/Rhythm: regular rate and regular rhythm Heart Sounds: no murmur Gastrointestinal (Abdomen) Inspection/Auscultation: abdomen normal to inspection and normal bowel sounds; abdomen not distended Percussion/Palpation: abdomen soft; abdomen nontender Neurologic moves all extremities; no focal motor deficits Lymphatic no cervical or axillary lymphadenopathy Discharge Data Allergies Allergy/AdvReac Type Severity Reaction Status Date / Time No Known Allergies Allergy Unknown Verified 07/21/20 02:04 Consultations 07/21/20 04:22 ED Decision to Admit Stat 07/21/20 07:33 Consult Case Management - Discharge Planning Routine Ordered Studies 07/21/20 06:45 CT chest wo con Urgent Hospital Course (1) Weakness: Presented with generalized weakness and inability to ambulate normally Contributed by dehydration Appreciate physical therapy input and recommendation (2) Hypoxia: Noted to be hypoxic at presentation CT evidence of lower lobe bronchial wall thickening and mucous plugging with basilar atelectasis Likely has tracheobronchitis Has been getting intravenous ceftriaxone and oral doxycycline for now Will change antibiotic to oral doxycycline on discharge Requiring more oxygen to maintain saturation We will discontinue intravenous ceftriaxone and continue with oral doxycycline We will provide spirometer Repeat chest x-ray tomorrow-no evidence of CHF and/or pneumonia Received 1 dose of Lasix of 40 mg intravenously this morning We will get to do steps O2 saturation test before discharge this afternoon (3) Acute renal failure superimposed on stage 3 chronic kidney disease: Has CKD 3 Admitted with acute on chronic renal failure with increasing creatinine and BUN Creatinine improved from 2.37 on admission to 1.95 this morning-07/22/2020 Would advise more fluid intake and avoid giving any intravenous fluids Monitor PRP-creatinine has been improving Creatinine remains at 1.76 as of 07/23/2020 (4) Diabetes mellitus, type II: Continue SSI (5) Elevated troponin I level: Troponin seems to be chronically elevated Serial troponin seems to be improving 1.240> 0.782 Doubt any ACS (6) HTN (hypertension): Controlled (7) CAD (coronary artery disease): No acute symptoms History of abdominal aortic aneurysm Infrarenal with dimension 5.65.6 Will control blood pressure and have an outpatient appointment with vascular surgery on discharge Discussed with the patient will have outpatient follow-up DVT prophylaxis Will add heparin subcu We will get PT and OT evaluation prior to discharge Likely discharge this afternoon Total Time Total Time Spent Total Time Spent (In Minutes): 35 minutes Total Time Includes: Examination of the Patient, Discharge Planning, Medication Reconciliation and Communication With Other Providers Discharge Plan Discharge Items Patient Disposition: Home - Self-Care Reason For Visit: WEAKNESS Discharge Diagnosis: Generalized weakness, transient hypoxemia secondary to tracheobronchitis, acute on chronic kidney disease, diabetes type 2 Condition on Discharge: Fair Activity: Resume your previous activity Non-emergency contact: Primary Care Provider Call non-emergency contact if: you have any medication questions and your symptoms worsen Follow-up/Referrals: Ganesh Livingston DO [Primary Care Provider] - 07/28/20 1:40 pm (The patient will need to have a referral to vascular surgeon for abdominal aortic aneurysm if the patient prefers) Diet: Carb Consistent or DM2 and Heart Healthy Addtl Attending Provider Instructions: Please take precaution to avoid falls Pending Studies at Discharge: No Stand-Alone Forms: My [facility] [employer] Smoking Cessation Medications and DC Order Prescriptions: New doxycycline hyclate 100 mg Capsule 100 mg PO BID 4 Days Qty: 8 RF: 0 prednisone 20 mg Tablet 40 mg PO DAILY 2 Days Qty: 4 RF: 0 Continued hydrochlorothiazide 12.5 mg capsule 12.5 mg PO QAM RF: 0 amlodipine 5 mg tablet 5 mg PO DAILY RF: 0 buspirone 10 mg tablet 10 mg PO BID RF: 0 escitalopram oxalate 10 mg tablet 10 mg PO DAILY RF: 0 glipizide 10 mg tablet extended release 24hr 10 mg PO BID RF: 0 omeprazole 40 mg capsule,delayed release(DR/EC) 40 mg PO DAILY RF: 0 rosuvastatin 10 mg tablet 10 mg PO DAILY RF: 0 tamsulosin 0.4 mg capsule 0.4 mg PO DAILY RF: 0 Tradjenta 5 mg tablet 5 mg PO DAILY RF: 0 furosemide 40 mg tablet 40 mg PO DAILY Qty: 0 RF: 0 aspirin 81 mg Tablet,Delayed Release (Dr/Ec) 81 mg PO HS Qty: 0 RF: 0 metoprolol succinate [Toprol XL] 25 mg tablet extended release 24 hr 12.5 mg PO QAM RF: 0 calcitriol [Rocaltrol] 0.25 mcg capsule 0.25 mg PO [id number] RF: 0 Discharge Orders: Discharge Order (Routine); Ordered 07/24/20 Ordered By: Yogi Paul/Other Patient Handouts: Managing Type 2 Diabetes Admission Data Admit Date/Time: 07/21/20 05:25 Attending Provider: Yogi Allen Admit Provider: Sidney Carranza Primary Care Provider: Ganesh Livingston Other Providers: Sidney Carranza ; [facility] Other Interventions: Discharge Summary Assessment (RN) Last Done: 07/24/20 14:46
--- NOTE | 2020-07-25 15:28 | Electrocardiogram Report ---
Test Reason : Blood Pressure : / mmHG Vent. Rate : 064 BPM Atrial Rate : 064 BPM P-R Int : 176 ms QRS Dur : 078 ms QT Int : 400 ms P-R-T Axes : 044 038 021 degrees QTc Int : 412 ms Normal sinus rhythm Normal ECG When compared with ECG of 21-JUL-2020 01:46, Nonspecific T wave abnormality no longer evident in Lateral leads Confirmed by Anthony Walden ([id number]) on 07/25/2020 3:28:04 PM Referred By: REFERRED SELF Confirmed By:Anthony Walden
--- NOTE | 2020-08-04 13:34 | Coding Query ---
CODING QUERY To promote full compliance with coding requirements relating to patient care, provider participation is requested in all cases of rolled seat trimmer uncertainty. Please assist us with the question(s) below: Coding Question(s): 1. The H&P has addendum at the bottom that documents, "Ct chest shows chronic lung disease and lower lobe bronchial wall thickening and mucus plugging.Hx of smoking in the past.Rhonchi on exam. Mostly Copd ex. will add Nebs ATC and prednisone 40mg daily and monitor.". COPD is not documented anywhere else in the record. Please clarify below, in your clinical opinion, regarding the documentation of, "Copd ex.". ( ) Patient was treated for COPD Exacerbation ( ) Patient has COPD but not in exacerbated ( + ) No COPD - this is ruled-out ( ) Other: Please Specify 2. Tracheobronchitis is documented in the record and on Discharge Summary. Please clarify below, in your clinical opinion, regarding Tracheobronchitis. ( + ) Acute Tracheobronchitis ( ) Chronic Tracheobronchitis ( ) Unspecified Tracheobronchitis ( ) Other: Please Specify Physician's Response(s): We need to talk about these query.Pl qliq me on Friday and will go over these. Thank you Joanne Chandler Principal Diagnosis: "that condition established after study, to be chiefly responsible for occasioning the admission of the patient to the hospital for care." Co-Existing Principal Diagnosis: "when two or more diagnoses equally meet the criteria for principal diagnosis as determined by the circumstances of admission, diagnostic work up, and/or therapy provided, and the Alphabetic Index, Tabular List, or another coding guideline does not provide sequencing direction, any one of the diagnoses may be sequenced first." "When the physician has documented what appears to be a current diagnosis in the body of the record, but has not included the diagnosis in the final diagnostic statement, the physician should be asked whether the diagnosis should be added." (Source [facility] 2 QTR90. p3-4) MTDD
== END 2020-07-24 15:31 | disposition home health service (06) | DRG 202 ==
LOC: ED 01:06 → SUATTDRO 05:25 → 2S 05:25